=== PATIENT | female | born 1950 | race Caucasian/White ===

== ENCOUNTER 2025-01-03 03:43 | Inpatient (IN) | payer OTHER, SELFPAY ==
[2025-01-03] VITALS (25 sets, daily range): BP systolic 89–148; BP diastolic 47–104; PULSE 68–88; RESP 15–18; TEMP 36.1–37.3; O2SAT 74–100; BMI 29.3; BMI 26.6
--- NOTE | 2025-01-03 04:08 | EKG12_ITS ---
Test Reason : DYSRYTHMIA
[2025-01-03 04:17] LABS: Hematocrit 34.8 % (37-47); Hemoglobin 11.3 g/dL (12.0-15.0); Immature Granulocytes Count 0.080 X10^3/uL (0.0-0.0); Mean Corp Hgb Conc 32.5 g/dL (32-36); Mean Corpuscular Volume 87.4 fL (81-99); Mean Platelet Vol. 10.2 fl (6.2-12.0); NRBC Flagged by Analyzer 0 % (0-5); Platelet Count 260 K/mm3 (150-450); RBC Distribution Width CV 13.8 % (11.6-14.6); RBC Distribution Width SD 44.8 fl (35.1-43.9); Red Blood Count 3.98 M/mm3 (4.2-5.4); White Blood Count 11.8 K/mm3 (4.4-11.0)
--- NOTE | 2025-01-03 04:22 | PCM.HP.STD ---
HPI - General General Date of Admission: 01/03/25 Date of Service: 01/03/25 Chief Complaint: Fall, L hip pain. HPI Narrative The patient is a 78 y/o F w/ PMHx: Obesity, GERD w/ Hx gastric ulcer who presents to the [facility] ED on 01/03/25 with history of unfortunately mechanical fall while taking her dog out, tripping landing on her left hip with significant tenderness 10 severe sharp pain and debility with inability to bear weight prompting ED evaluation. In the ED upon evaluation she currently is rating her pain 9 out of 10 in severity and sharp in nature. She denies any paresthesias. Workup in the ED included T98, heart rate 88, BP 148/73, respiratory rate 16, 94% on room air, CBC with WC 11.8, Hgb 11.3, MCV 87.4, platelet 260 with left shift, unremarkable coags, BMP with BUN/creatinine 19/0.65, GFR 92, glucose 116, urinalysis unremarkable, plain film of the left hip and pelvis nondisplaced impacted fracture of the left femoral neck with moderate bilateral hip arthrosis, chest x-ray with no acute cardiopulmonary findings, plain film of the left knee/tib-fib region with no acute osseous finding, EKG pending upon evaluation patient. In the ED patient administered morphine 4 mg IV x 1 as well as Zofran 4 mg IV x 1. ED discussed case with orthopedic surgeon Dr. Cao. [facility] Medical History (Updated 01/03/25 @ 05:[address] Kailyn Rizvi MD) Chronic anemia CKD (chronic kidney disease), stage II Hx of gastric ulcer GERD (gastroesophageal reflux disease) Home Medications ?Medication ?Instructions ?Recorded ?Last Taken ?Type omeprazole 40 mg capsule,delayed 20 mg PO DAILY 01/03/25 Unknown History release Allergy/AdvReac Type Severity Reaction Status Date / Time carbamazepine (From Tegretol) Allergy Other Verified 01/03/25 03:45 Family History (Updated 01/03/25 @ 04:[address] Kailyn Rizvi MD) Mother Heart disease Father Prostate cancer Surgical History Hx of bilateral cataract extraction Hx of appendectomy History of bladder surgery Social History (Updated 01/03/25 @ 04:[address] Kailyn Rizvi MD) household members: none Smoking Status: Never smoker alcohol intake: never substance use type: does not use ROS ROS Narrative Admission Review of Systems: CONSTITUTIONAL: No weight loss, fever, chills, = weakness or fatigue. HEENT: Eyes: No visual loss, blurred vision, double vision or yellow sclerae. Ears, Nose, Throat: No hearing loss, sneezing, congestion, runny nose or sore throat. SKIN: No rash or itching, lesions, wounds. CARDIOVASCULAR: No chest pain, chest pressure or chest discomfort, palpitations, edema, orthopnea, syncopal events. RESPIRATORY: No shortness of breath, cough or sputum, wheezing, hemoptysis. GASTROINTESTINAL: No anorexia, nausea, vomiting or diarrhea, abdominal pain, melena, BRBPR. GENITOURINARY: No dysuria, frequency, urgency or retention. NEUROLOGICAL: No headache, dizziness, syncope, paralysis, ataxia, numbness or tingling in the extremities, focal weakness, change in bowel or bladder control, seizure. MUSCULOSKELETAL: + muscle, back pain, joint pain or stiffness. HEMATOLOGIC: + Appearance of chronic anemia, no marked easy bleeding or bruising. LYMPHATICS: No enlarged nodes. No history of splenectomy. PSYCHIATRIC: No history of depression or anxiety. ENDOCRINOLOGIC: No reports of sweating, cold or heat intolerance. No polyuria or polydipsia. ALLERGIES: No history of asthma, hives, eczema or rhinitis. Vital Signs Vital Signs Vital Signs: 01/03/25 03:45 01/03/25 03:48 Temperature 98.0 F Temperature Source Oral Pulse Rate 88 Respiratory Rate 16 Respiratory Effort Normal Non-Labored Respiratory Depth Normal Respiratory Pattern Normal Blood Pressure 148/73 H Blood Pressure Mean 98 Pulse Ox 94 95 Oxygen Delivery Method Room Air Room Air Weight Weight: 187 lb 6.287 oz Body Mass Index (BMI) 29.3 Physical Exam Narrative Physical Examination: General: Awake, alert, oriented x 3 and cooperative, laying in the bed, reports persistent left hip pain rating it 9 out of 10. Skin: Normal color, normal turgor, no icterus, no cyanosis except occasional stage ecchymoses, abrasion. HEENT: AT/NC, EOMI, PERRLA, mildly dry MM, no carotid bruits or JVD noted. Lungs: CTA bilaterally, moderate effort, mild decrease BL bases, no rales, ronchi or wheezing. Heart: Regular rate and rhythm; no gallop, rub audible. Abdomen: Soft, obese, NTTP, ND, normal BS, no markedly appreciated HSM. Extremities: No cyanosis, no clubbing, mild bilateral ankle not markedly pitting edema, peripheral pulses intact. Neurological: Patient awake, alert, oriented as noted, cognitive function intact; pupils equally reactive to light and accommodation, cranial nerves grossly normal, moving all 4 extremities except expected limitation given recent mechanical fall with severe left hip pain, no focal deficits, strength accordingly severely globally decreased Psychiatric: Affect appears fatigued otherwise normal, no acute evidence of depressive or anxiety feelings. Results Lab / Micro Data 01/03/25 04:12 01/03/25 04:12 Labs: Laboratory Results - last 24 hr 01/03/25 04:12: WBC 11.8 H, RBC 3.98 L, Hgb 11.3 L, Hct 34.8 L, MCV 87.4, MCH 28.4, MCHC 32.5, RDW Std Deviation 44.8 H, RDW Coeff of Dexter 13.8, Plt Count 260, MPV 10.2, Immature Gran % (Auto) 0.700, Neut % (Auto) 79.6 H, Lymph % (Auto) 14.9 L, [place] % (Auto) 3.7, Eos % (Auto) 0.8, Baso % (Auto) 0.3, Absolute Neuts (auto) 9.4 H, Absolute Lymphs (auto) 1.77, Nucleated RBC % 0 Assessment & Plan Assessment/Plan (1) Closed left hip fracture: PLAN: Plan The patient is a 78 y/o F w/ PMHx: Obesity, GERD w/ Hx gastric ulcer who presents to the [facility] ED on 01/03/25 with history of unfortunately mechanical fall while taking her dog out, tripping landing on her left hip with significant tenderness 10 severe sharp pain and debility with inability to bear weight prompting ED evaluation. #1. General debility, left hip pain s/p mechanical fall w/ left femoral neck nondisplaced impacted fracture: Orthopedic surgery consulted from ED. Will admit to MS, maintain NPO, continue gentle IVFs, hawthorne placement, monitor I/Os, frequent positioning, fall precautions, as needed pain, anti-emetic regimen. PT/OT following operative intervention. CM consulted for discharge planning. Per NSQIP patient low perioperative cardiac event risk with no marked underlying medical history. EKG will be obtained in the ED and if there is no acute concerning findings then would agree with progression to OR today. #2. Normocytic anemia, unclear chronicity: Admission hemoglobin 11.3, MCV 87.4, unfortunately no comparison labs thus uncertain hemoglobin baseline, will repeat CBC to further elucidate. #3. Chronic Kidney Disease Stage II per previous GFR trending although remote: Admission BUN/Cr 19/0.65, baseline renal function 0.8, repeat BMP in AM. #4. Obesity: Weight loss and lifestyle changes encouraged. #5. GERD with history of gastric ulcer: Will continue patient on PPI. #6. DVT prophylaxis: SCDs, defer chemoprophylaxis given planned intervention. #7. CODE status: Patient does not have healthcare power of criminal attorney or living will in place but she notes her brother who is present would be her medical decision-maker if necessary. Discussed CODE status at length including difference between FULL code, DNR-CCA and DNR-CC status. Following discussions about the differences in these status, requested DNR-CCA with allowance of short term intubation. Charges/Coding Visit Charges Inpatient E&M: 53502 Init Hosp L3
[2025-01-03 04:27] LABS: Prothrombin Time (Protime)PT. 13.6 SECONDS (11.7-14.9)
--- NOTE | 2025-01-03 04:27 | EX.ED.DYSGE1 ---
HPI History of Present Illness Chief Complaint: Fall Informant: patient, family and EMS Narrative Narrative: Patient is a 74-year-old female who reports a past medical history of GERD/gastric ulcer for which she takes omeprazole. Otherwise she denies any significant past medical history. She states that this morning around 230 or 3 AM she was up letting her dog out. She states she let the dog back in and then she was standing on her right foot pulling up the sock on her left leg. She states as she was balancing on 1 foot she lost her balance and fell landing on the left hip/leg. She reports instant pain along the left hip and states she could not stand and ambulate after the fall secondary to pain. She denies striking her head or any loss of consciousness. She denies any history of bleeding disorder or blood thinner use. She denies any other injury. She reports that her brother was also up and was able to contact EMS. With concern for potential fracture she was brought to the ER for evaluation. [facility] Medical History (Updated 01/03/25 @ 05:[address] Matt Garcia DO) Chronic anemia CKD (chronic kidney disease), stage II Hx of gastric ulcer GERD (gastroesophageal reflux disease) Home Medications ?Medication ?Instructions ?Recorded ?Last Taken ?Type omeprazole 40 mg capsule,delayed 20 mg PO DAILY 01/03/25 Unknown History release Allergy/AdvReac Type Severity Reaction Status Date / Time carbamazepine (From Tegretol) Allergy Other Verified 01/03/25 03:45 Family History (Updated 01/03/25 @ 04:[address] Kailyn Rizvi MD) Mother Heart disease Father Prostate cancer Surgical History Hx of bilateral cataract extraction Hx of appendectomy History of bladder surgery Social History (Updated 01/03/25 @ 04:[address] Kailyn Rizvi MD) household members: none Smoking Status: Never smoker alcohol intake: never substance use type: does not use ROS ROS ED Constitutional Constitutional ED: Denies chills or fever(s) Eyes Eyes: Denies blurry vision or change in vision ENT ENT ED: Denies sore throat Cardiovascular Cardiovascular: Reports other Details: Negative syncope ; Denies chest pain, palpitations or racing heartbeat Respiratory/Chest Respiratory/Chest: Denies cough or dyspnea Gastrointestinal Gastrointestinal: Denies abdominal pain, diarrhea, nausea or vomiting Genitourinary Genitourinary ED: Denies dysuria Musculoskeletal Musculoskeletal: Reports other Details: Positive left hip/thigh pain ; Denies back pain or neck pain Integumentary Denies Abrasions or rash Neurologic Neurologic: Denies headache(s), paresthesias or weakness Hematologic/Lymphatic Hematologic/Lymphatic: Denies easy bleeding or easy bruising EXAM Physical Exam Const Vital Signs: 01/03/25 03:45 01/03/25 03:48 01/03/25 04:20 Temperature 98.0 F Temperature Source Oral Pulse Rate 88 Respiratory Rate 16 Respiratory Effort Normal Non-Labored Respiratory Depth Normal Respiratory Pattern Normal Blood Pressure 148/73 H Blood Pressure Mean 98 Pulse Ox 94 95 80 Oxygen Delivery Method Room Air Room Air Room Air Oxygen Flow Rate (L/min) 01/03/25 04:30 01/03/25 05:00 Temperature Temperature Source Pulse Rate 75 Respiratory Rate 16 Respiratory Effort Respiratory Depth Respiratory Pattern Blood Pressure 100/62 Blood Pressure Mean 74 Pulse Ox 93 96 Oxygen Delivery Method Nasal Cannula Nasal Cannula Oxygen Flow Rate (L/min) 2 2 Positive well nourished and well developed General Appearance ED: well developed; Negative for pallor HEENT HEENT Narrative: Normocephalic atraumatic No signs of depressed or basilar skull fracture Eyes PERRL and EOMs intact bilaterally General Eye ED: Negative for scleral icterus Neck supple Neck Narrative: No bony deformity or step-off of the cervical spine no midline tenderness to palpation Chest Wall palpation of chest normal Chest Narrative: No bony deformity or subcutaneous emphysema noted Resp normal respiratory effort and clear to auscultation bilaterally Cardio regular rate and regular rhythm Rate: other Other Details: Radial and carotid pulses are equal and symmetric GI normal to inspection, nondistended, normoactive bowel sounds, non-tender, non-distended and no masses GI Narrative: No voluntary guarding or rigidity or pulsatile mass Auscultation: normoactive bowel sounds Palpation: soft Extremity Extremity Narrative: Pelvis is stable there is no obvious shortening or external rotation of either lower extremity Patient has pain palpation of the left hip near the greater trochanter region as well as the distal third of the femur and anterior aspect of the left knee. There is no obvious bony deformity or joint effusion. However there is significant pain with active or passive range of motion. All compartments are soft and compressible going against compartment syndrome There are no overlying abrasions or ecchymosis noted as well Remainder of the exam is normal Neuro oriented x3, CN's II-XII intact bilaterally and no sensory deficits noted Sensorium / Orientation: alert Psych mental status grossly normal Skin no rashes or lesions noted and no wounds General Skin Exam: Negative for jaundice or pallor MDM MDM MDM Narrative Medical decision making narrative: Patient arrived to the ER with stable vitals. She reported a mechanical fall and therefore I felt no need for cardiac or syncope workup. She did not strike her head she did not have loss of consciousness she does not have history of bleeding disorder nor is she on blood thinners so I low concern for atraumatic skull fracture or traumatic subarachnoid subdural hemorrhage and there is no need for head CT. With the patient reporting sudden onset of pain following the fall and the inability to ambulate there is high likelihood for femoral neck or pubic rami fracture. Therefore x-rays of the left hip and pelvis were obtained. As she also had pain along the distal femur/knee there is concern for distal femur fracture versus patellar fracture or tibial plateau fracture so an x-ray of the knee was added. The left hip x-ray revealed a impacted femoral neck fracture which correlates with her history of fall sudden onset pain and the fact that her leg is not shortened or rotated. She does not have findings of compartment syndrome and she is closed and neurovascularly intact. As she will require surgical fixation for her to walk the case was reviewed with orthopedic surgeon Dr. Cao. He reviewed the films and agrees with the radiologist and states he should be able to perform a surgical fix to the patient's left hip later today. Therefore the patient will be made n.p.o.. Based on her advanced age the hospitalist was then contacted in order to admit the patient and perform medical clearance. The hospitalist evaluated the patient in the ER and agrees to accept her to her service for continued care and medical clearance. History & Record Review Discussion w/independent historian: EMS personnel, Patient and Family Lab Data Attestation: I reviewed the patient's lab results. Labs: Laboratory Results - last 24 hr 01/03/25 01/03/25 04:12 04:34 WBC 11.8 H RBC 3.98 L Hgb 11.3 L Hct 34.8 L MCV 87.4 MCH 28.4 MCHC 32.5 RDW Std Deviation 44.8 H RDW Coeff of Dexter 13.8 Plt Count 260 MPV 10.2 Immature Gran % (Auto) 0.700 Neut % (Auto) 79.6 H Lymph % (Auto) 14.9 L [place] % (Auto) 3.7 Eos % (Auto) 0.8 Baso % (Auto) 0.3 Absolute Neuts (auto) 9.4 H Absolute Lymphs (auto) 1.77 Nucleated RBC % 0 PT 13.6 INR 1.0 APTT 30.2 Sodium 139 Potassium 4.0 Chloride 103 Carbon Dioxide 25.4 Anion Gap 11 BUN 19 Creatinine 0.65 L Estim Creat Clear Calc 68.06 Est GFR (MDRD) Non-Af 92 BUN/Creatinine Ratio 29.5 H Glucose 116 H Calcium 8.9 Urine Color Yellow Urine Clarity Sl. Cloudy Urine pH 7.0 Ur Specific [place] 1.010 Urine Protein Negative Urine Glucose (UA) Normal Urine Ketones Negative Urine Occult Blood 25 H Urine Nitrite Negative Urine Bilirubin Negative Urine Urobilinogen Normal Ur Leukocyte Esterase Negative Urine RBC 0 SEEN Urine WBC 0-5 SEEN Ur Squamous Epith Cells 0 SEEN Urine Bacteria 0 SEEN Urine Mucus 0 SEEN Radiography Diagnostic Testing: Clinical Impression(s) from Imaging Studies Chest X-Ray 01/03/25 04:50 IMPRESSION: No acute pulmonary disease. Reading Location: [facility] Hip/Pelvis X-Ray 01/03/25 04:50 IMPRESSION: Nondisplaced impacted fracture of the left femoral neck. Moderate bilateral hip arthrosis. Reading Location: [facility] Knee X-Ray 01/03/25 04:50 IMPRESSION: No acute fracture or dislocation. 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 Reading Location: [facility] 1 view chest x-ray as interpreted by the emergency medicine physician reveals no acute infiltrate or pneumothorax or rib fracture Knee x-ray as interpreted by the emergency medicine physician reveals no acute fracture dislocation or joint effusion Left hip x-ray with 1 view pelvis as interpreted by the emergency medicine physician reveals an impacted fracture of the left femoral neck. Management Discussion w/another healthcare provider: Hospitalist and Instruments Sales Representative Discharge Plan Dx/Rx/DC Orders Clinical Impression: Closed left hip fracture, Accidental fall, GERD (gastroesophageal reflux disease) Disposition Disposition: Acute Care Hospital [facility]
[2025-01-03 04:28] LABS: Partial Thromboplast Time 30.2 Seconds (24.1-36.2)
[2025-01-03 04:33] LABS: Anion Gap 11 (5-15); BUN 19 mg/dL (4-19); BUN/Creat Ratio 29.5 RATIO (10-20); Calcium,Total 8.9 mg/dL (7.6-11.0); Carbon Dioxide 25.4 mmol/L (21.0-32.0); Chloride 103 mmol/L (98-108); Estimated Creatinine Clearance 68.06 ml/min (50-250); Glucose 116 mg/dL (70-99); Potassium 4.0 mmol/L (3.3-5.1)
[2025-01-03 04:39] LABS: Color, Urine Yellow (Yellow); Glucose, Dipstick Normal (Normal); Ketone-Dipstick Negative (Negative); Leukocyte Esterase-Dipstick Negative /ul (Negative); Nitrite-Dipstick Negative (Negative); Occult Blood-Urine 25 /ul (Negative); Protein-Dipstick Negative (Negative); Specific Gravity, Urine 1.010 (1.002-1.030); Urine Bilirubin Dipstick Negative (Negative)
[2025-01-03 04:40] LABS: Mucous, Urine 0 SEEN /hpf (<or=2+); Red Blood Cells-Urine 0 SEEN /hpf (0-5); Squamous Epithelial Cells - UA 0 SEEN /hpf (5-10)
--- NOTE | 2025-01-03 04:50 | RAD_ITS ---
PROCEDURE: RAD/Knee 1 or 2 Views
--- NOTE | 2025-01-03 04:50 | RAD_ITS ---
PROCEDURE: RAD/HIP, UNI W/ Pelvis 2-3 Views
--- NOTE | 2025-01-03 04:50 | RAD_ITS ---
PROCEDURE: RAD/Chest 1 View (Portable)
[2025-01-03] MEDS: HYDROmorphone 0.5 MG/0.5 ML SYRINGE IV (05:19)
[2025-01-03] MEDS: 0.9% Saline Lock 10 ML Syringe IV ×2 (06:52→18:44)
[2025-01-03] MEDS: 0.9% Normal Saline (1000mL) 1,000 ML 100 ML IV (06:52)
--- NOTE | 2025-01-03 09:59 | PCM.PRE.AN2 ---
ASA Classification* ASA Classification ASA Classification: 2 and E Assessment & Plan Anesthesia* Anesthesia Assessment Anesthesia Assessment: Discussed sedation and/or anesthesia options, risks, benefits, and alternatives with patient/parents/legal guardian/POA. Questions invited. The patient/parents/legal guardian/POA seems to understand and agrees to proceed with anesthesia plan. Reviewed the physical assessment, medical history, allergy history and patient home medications list prior to surgery/procedure/anesthetic and documented any changes. Performed airway and anesthesia risk assessments. Anesthesia Type Anesthesia Type: Spinal (verses GA based on surgeon preference) Anesthesia Focused Assessment* Temperature: 97.7 F Pulse Rate: 79 Blood Pressure: 106/62 Respiratory Rate: 17 Pulse Ox: 100 Oxygen Flow Rate (L/min): 2 Airway Assessment Mouth opens: >3 cm Mallampati Score: II Labs Anesthesia Preop lab: CBC WBC, (4.4-11.0) 11.8 K/mm3 H Today, 04:12 RBC, (4.2-5.4) 3.98 M/mm3 L Today, 04:12 Hgb, (12.0-15.0) 11.3 g/dL L Today, 04:12 Hct, (37-47) 34.8 % L Today, 04:12 Plt Count, (150-450) 260 K/mm3 Today, 04:12 CHEMISTRY Potassium, (3.3-5.1) 4.0 mmol/L Today, 04:12 Sodium, (133-145) 139 mmol/L Today, 04:12 BUN, (4-19) 19 mg/dL Today, 04:12 Creatinine, (0.70-1.20) 0.65 mg/dL L Today, 04:12 Glucose, (70-99) 116 mg/dL H Today, 04:12 COAG PT, (11.7-14.9) 13.6 SECONDS Today, 04:12 Pre-Assessment Diagnosis/Proposed Procedure Planned Operative Procedure(s): Hemiarthroplasy hip Anesthesia History Anesthesia History - furnace combustion tester: Anesthesia History - furnace combustion tester Hx Hospitalization Yes 04/21/14 09:05 Any Problems With Anesthesia No 01/03/25 06:09 Cholinesterase deficiency No 01/03/25 06:09 You/Your Family Experience No 01/03/25 06:09 fever (hyperthermia) with Relationship Recent Exposure to Contagious No 01/03/25 06:09 Disease Does patient have nerve No 01/03/25 06:09 stimulator Patient instructed to have No 01/03/25 06:09 device shut off --Does patient have Pacemaker or ICD? When Was Last Pacemaker Check QUESTION #4 FULL TEXT: You/Your Family Experience fever (hyperthermia) with Anesthesia Last Oral Intake Last Oral intake: Last Oral Intake NPO since Meds taken in AM with sips of water? Meds patient instructed to take am of surgery PONV PONV - furnace combustion tester: PONV - furnace combustion tester Female HX of Motion Sickness HX of N/V After Surgery Non-Smoker Duration of Surgery greater than 60 minutes Number of Risk Factors PONV Score Height & Weight Height & Weight: Anesthesia: Height & Weight Height 5 ft 7 in 01/03/25 06:08 Weight: 77 kg 01/03/25 06:08 Body Mass Index (BMI) 26.6 01/03/25 06:08 Respiratory Assessment Respiratory Assessment - furnace combustion tester: Respiratory Tract Infection Hx - furnace combustion tester Hx Respiratory Tract Infection No 01/03/25 06:09 STOP Sleep Apnea STOP Sleep Apnea - furnace combustion tester: STOP Sleep Apnea - furnace combustion tester Hx Hypertension Yes 01/03/25 07:34 Hx Sleep Apnea No 01/03/25 06:08 CPAP No 04/28/14 09:28 BIPAP No 04/21/14 09:05 Do you snore loudly (louder No 01/03/25 06:08 than talking or can be heard Do you often feel tired/ No 01/03/25 06:08 fatigued/ sleepy during daytime? Has anyone observed you stop No 01/03/25 06:08 breathing during sleep? STOP Results Negative 01/03/25 06:08 QUESTION #5 FULL TEXT : Do you snore loudly (louder than talking or can be heard through closed doors)? Tobacco Use History Tobacco Use History - furnace combustion tester: Tobacco Use History - furnace combustion tester Tobacco Use Smoking Status Never smoker 01/03/25 06:08 Hx Tobacco Use No 01/03/25 06:08 Years Smoking Packs Smoked per Day Smoking Cessation Date was within the last 15 years Hx Smoking Cessation Date Hx Smoking Cessation Counseling Hematologic Medial History Hematologic Hx - furnace combustion tester: Hematologic Medical Hx - certified legal secretary specialist Hx of Blood Transfusion No 01/03/25 06:08 Hx of Transfusion in last 3 No 01/03/25 06:08 Months Date of Last Transfusion (if within last 3 months) Ever experience any problems No 01/03/25 06:08 with transfusion(s)? Specify any problems Hx of Preganancy in last 3 N/A 01/03/25 06:08 Months Nurse Filling Out Transfusion ALOWDEN 01/03/25 06:08 & Questions: Date: 01/03/25 01/03/25 06:08 Time: 06:35 01/03/25 06:08 Patient unable to answer at this time (ie. confused, unrespo /Reproduction History /Reproductive History - furnace combustion tester: /Reproductive Hx- furnace combustion tester Hx Now No 01/03/25 06:09 Gestational Age (in weeks): EDC: Hx Hx Para Hx Section SAB No 01/03/25 06:09 Active Medications Active Medications: Current Medications Generic Name Dose Route Start Last Admin Trade Name Freq PRN Reason Stop Dose Admin Acetaminophen 650 mg 01/03/25 06:23 Acetaminophen 325 Mg Tablet PO Q4H PRN PRN Fever, pain 1-12/11 Al Hydroxide/Mg Hydroxide 30 ml 01/03/25 06:23 Mag Hydrox/Al Hydrox/Simeth 30 Ml Udc PO Q6H PRN PRN Gastric Burning Albuterol Sulfate 2.5 mg 01/03/25 06:23 Albuterol 2.5 Mg/3 Ml Vial.Neb. INHALATION Q2H PRN PRN Dyspnea, wheezing Guaifenesin 20 ml 01/03/25 06:23 Guaifenesin 10 Ml Udc (200mg/10ml) PO Q4H PRN PRN COUGH Hydralazine HCl 10 mg 01/03/25 06:23 Hydralazine 20 Mg/Ml Vial IV Q4H PRN PRN SBP > 160 Protocol Sodium Chloride 250 mls @ 15 mls/hr 01/03/25 06:09 IV .[id number] PRN Saline Flush Sodium Chloride 250 mls @ 15 mls/hr 01/03/25 06:09 IV .[id number] PRN Additional IVPB Infusion Sodium Chloride 1,000 mls @ 100 mls/hr 01/03/25 06:23 01/03/25 06:52 IV 01/03/25 16:22 100 mls/hr .Q10H IRMA Administration Melatonin 3 mg 01/03/25 06:23 Melatonin 3 Mg Tablet PO QHS PRN PRN INSOMNIA Morphine Sulfate 2 - 4 mg 01/03/25 06:23 01/03/25 08:19 Morphine 4 Mg/Ml Syringe IV 4 mg Q2H PRN PRN Administration Pain Score 4-10 Ondansetron HCl 4 mg 01/03/25 06:23 Ondansetron 4 Mg/2 Ml Vial IV Q8H PRN PRN NAUSEA/VOMITING Oxycodone HCl 2.5 - 5 mg 01/03/25 06:23 Oxycodone 5 Mg Tablet PO Q4H PRN PRN Pain Score 4-10 Pantoprazole Sodium 20 mg 01/03/25 10:00 Pantoprazole Sodium 20 Mg Tablet PO DAILY IRMA Senna/Docusate Sodium 2 tablet 01/03/25 10:00 Senna/Docusate Sodium 1 Tablet PO BID IRMA Sodium Chloride 10 - 40 ml 01/03/25 06:09 01/03/25 06:52 0.9% Saline Lock 10 Ml Syringe IV 10 ml UD PRN Administration SALINE FLUSH PFSH Medical History (Updated 01/03/25 @ 05:[address] Matt Garcia, DO) Chronic anemia CKD (chronic kidney disease), stage II Hx of gastric ulcer GERD (gastroesophageal reflux disease) Home Medications ?Medication ?Instructions ?Recorded ?Last Taken ?Type omeprazole 40 mg capsule,delayed 20 mg PO DAILY 01/03/25 Unknown History release Allergy/AdvReac Type Severity Reaction Status Date / Time carbamazepine (From Tegretol) Allergy Other Verified 01/03/25 03:45 Family History (Updated 01/03/25 @ 04:[address] Kailyn Rizvi MD) Mother Heart disease Father Prostate cancer Surgical History Hx of bilateral cataract extraction Hx of appendectomy History of bladder surgery Social History (Updated 01/03/25 @ 04:[address] Kailyn Rizvi MD) household members: none Smoking Status: Never smoker alcohol intake: never substance use type: does not use Review of Systems (Anesthesia) ROS Narrative System reviewed and no additional complaints, except as documented.
--- NOTE | 2025-01-03 11:09 | PCM.CONS.GEN ---
Assessment & Plan Assessment/Plan (1) Fracture of femoral neck: QUALIFIERS: Encounter type: initial encounter Fracture type: closed Laterality: left Qualified Code(s): S72.002A - Fracture of unspecified part of neck of left femur, initial encounter for closed fracture PLAN: Plan Impacted displaced left femoral neck fracture Plan for hemiarthroplasty left hip Benefits alternatives of surgery reviewed including risk of bleed infection nerve artery tissue damage need for further surgery continued pain leg with discrepancy dislocation intraoperative fracture. Consent signed placed in the chart Antibiotics on-call to the OR TXA as well. HPI Consult Data Date of Consult: 01/03/25 HPI Narrative HPI Narrative: SHERON OSBORN, is a 74 F who presents after ground-level fall onto her left side immediately had pain inability ambulate she was brought to the emergency room where x-rays taken which demonstrated a displaced femoral neck fracture impacted. Denies any other injury or concern [facility] Medical History (Updated 01/03/25 @ 11:[address] Joseph Cao DO) Chronic anemia CKD (chronic kidney disease), stage II Hx of gastric ulcer GERD (gastroesophageal reflux disease) Home Medications ?Medication ?Instructions ?Recorded ?Last Taken ?Type omeprazole 40 mg capsule,delayed 20 mg PO DAILY 01/03/25 Unknown History release Allergy/AdvReac Type Severity Reaction Status Date / Time carbamazepine (From Tegretol) Allergy Other Verified 01/03/25 03:45 Family History (Updated 01/03/25 @ 04:[address] Kailyn Rizvi MD) Mother Heart disease Father Prostate cancer Surgical History Hx of bilateral cataract extraction Hx of appendectomy History of bladder surgery Social History (Updated 01/03/25 @ 04:[address] Kailyn Rizvi MD) household members: none Smoking Status: Never smoker alcohol intake: never substance use type: does not use Physical Exam Const alert, oriented x3 and no apparent distress General Appearance: cooperative and comfortable Extremity Extremity Narrative: Left hip no open wounds compartments soft she is able to wiggle her toes palpable pedal pulse intact and station light touch throughout the extremity Lab / Micro Data 01/03/25 04:12 01/03/25 04:12 Labs: Laboratory Results - last 24 hr 01/03/25 04:12: WBC 11.8 H, RBC 3.98 L, Hgb 11.3 L, Hct 34.8 L, MCV 87.4, MCH 28.4, MCHC 32.5, RDW Std Deviation 44.8 H, RDW Coeff of Dexter 13.8, Plt Count 260, MPV 10.2, Immature Gran % (Auto) 0.700, Neut % (Auto) 79.6 H, Lymph % (Auto) 14.9 L, [place] % (Auto) 3.7, Eos % (Auto) 0.8, Baso % (Auto) 0.3, Absolute Neuts (auto) 9.4 H, Absolute Lymphs (auto) 1.77, Nucleated RBC % 0, PT 13.6, INR 1.0, APTT 30.2, Sodium 139, Potassium 4.0, Chloride 103, Carbon Dioxide 25.4, Anion Gap 11, BUN 19, Creatinine 0.65 L, Estim Creat Clear Calc 68.06, Est GFR (MDRD) Non-Af 92, BUN/Creatinine Ratio 29.5 H, Glucose 116 H, Calcium 8.9 01/03/25 04:34: Urine Color Yellow, Urine Clarity Sl. Cloudy, Urine pH 7.0, Ur Specific [place] 1.010, Urine Protein Negative, Urine Glucose (UA) Normal, Urine Ketones Negative, Urine Occult Blood 25 H, Urine Nitrite Negative, Urine Bilirubin Negative, Urine Urobilinogen Normal, Ur Leukocyte Esterase Negative, Urine RBC 0 SEEN, Urine WBC 0-5 SEEN, Ur Squamous Epith Cells 0 SEEN, Urine Bacteria 0 SEEN, Urine Mucus 0 SEEN Imaging Radiology Impression Chest X-Ray 01/03/25 04:50 IMPRESSION: No acute pulmonary disease. Reading Location: [facility] Hip/Pelvis X-Ray 01/03/25 04:50 IMPRESSION: Nondisplaced impacted fracture of the left femoral neck. Moderate bilateral hip arthrosis. Reading Location: [facility] Knee X-Ray 01/03/25 04:50 IMPRESSION: No acute fracture or dislocation. 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 Reading Location: [facility]
[2025-01-03] MEDS: Midazolam 2 MG/2 ML Syringe IV (11:11)
[2025-01-03] MEDS: fentaNYL 100 MCG/2 ML Ampul IV (11:17)
--- NOTE | 2025-01-03 11:20 | FEM_PTH ---
PATIENT: SHERON OSBORN LOC: PCU U#:[id number] AGE/SX: 74/F ROOM: [facility] RE01/03/[address]: Dr. Lolly Lin MD : 1950 BED: 1 DIS: 01/06/2025 SPEC #: [id number] RECD: 01/04/25 07:17 STATUS: BENJAMIN UNIQUE #: [id number] KEV: 01/03/25 11:[address]: Joseph Cao DEPT: SURGICAL PATHOLOGY RECD BY: Sushil Castle ENTERED: 01/04/25 09:16 SP TYPE: FEM HEAD OTHR DR: MD Dr. Lolly Wilson MD JARED HOSTETLER, HORSERADISH GRINDER-C Tissues: A - Femoral region, NOS Procedures: Decalcification bone/plaque Surgery Specimen Level V HEADER OPERATION: Hemiarthroplasty, hip PRE-OP DIAGNOSIS: Fracture of left femoral neck TISSUE SUBMITTED: A- Left hip, bone and tissue MICROSCOPIC DIAGNOSIS A. Left hip, hemiarthroplasty: MICROSCOPIC DESCRIPTION Slides are reviewed. GROSS DESCRIPTION A. Received in formalin labeled with the patient's name and date of . Designated as bone and soft tissue-left hip is a 5.1 x 4.9 x 4.3 cm somewhat irregular, ovoid femoral head with detached, femoral neck in multiple pieces, 4.8 x 3.8 x 2.4 cm in aggregate. The resection margin of the femoral head is jagged and congested. The articular cartilage is mcintosh-red and granular with focal, possible eburnation and mild-moderate peripheral osteophyte formation. Sectioning reveals yellow-red, focally soft and hemorrhagic, trabeculated medullary bone throughout. Delivery Engineer sections are submitted in 2 cassettes, following decalcification as follows: A1: Femoral head with possible eburnation and focal hemorrhageA2: Femoral neck SC 01/04/2025 CPT:52328,02442
[2025-01-03] MEDS: Cefazolin 1 GM/5 ML Vial 2 GM IV (11:28)
[2025-01-03] MEDS: LACTATED RINGERS IV (11:29)
[2025-01-03] MEDS: TRANEXAMIC ACID 1,000 MG/10 ML ML 1000 MG IV (11:30)
[2025-01-03] MEDS: PROPOFOL 32.21 MG IV (12:27)
--- NOTE | 2025-01-03 13:10 | OP.PCM_ITS ---
Operative Report (Standard)
--- NOTE | 2025-01-03 13:10 | PCM.OPRPT ---
Operative Report (Standard) Operative Information Date of Procedure: 01/03/25 Pre-Operative Diagnosis: Left femoral neck fracture Post-Operative Diagnosis: Same Surgery/Procedure Performed: Left hip hemiarthroplasty traffic engineer: Yes Industrial Maintenance Repairer Helper: Nisreen Hagan Tasks completed by director of first impressions: Opening & closing Type of Anesthesia: Spinal RN Documented Start/Stop Times: Operation Date: 01/03/25 11:20 <No data on this case meets the specified criteria> Procedure Start Time: 11:20 Procedure Stop Time: 13:00 Select all DRAINS/GRAFTS/IMPLANTS that apply: Prosthetic device Prosthetic device details: [place] Estimated Blood Loss: 125 Specimen collected: Yes Description of specimen(s) removed: Femoral head Description of surgery: Preoperative diagnosis: Left hip femoral neck fracture displaced Postoperative diagnosis: Same Procedure: Left hip hemiarthroplasty Implants: Ramón Accolade II stem size 6 132 degree neck angle 0 neck length 53 mm outer diameter bipolar head Anesthesia: General l EBL: 150 cc Complications: None Condition: Stable to PACU Indication for procedure: This is a 74-year-old female patient with a ground-level fall sustaining a impacted displaced left femoral neck fracture. plans for definitive hemiarthroplasty were discussed including risks benefits and alternatives of the procedure were reviewed with the patient including risk of bleeding infection nerve artery tissue damage need for further surgery continue pain postoperative hip precaution restrictions leg length discrepancy and dislocation. Procedure: Patient was met in the preoperative holding area once again the operative extremity was identified by both patient and physician and was marked. Patient was met by anesthesia and brought to the operating room where anesthesia was started . The patient was then positioned in the lateral decubitus position on a well-padded pegboard with an axillary roll. All bony prominences were checked and padded. The patient was prepped and draped in the usual sterile fashion. A timeout was called to ensure the proper patient procedure and extremity were being contemplated. Anatomic landmarks were palpated and marked for a standard posterior lateral approach. A timeout was called to ensure the proper patient procedure and extremity were being contemplated. A 10 blade scalpel was used to make a posterior incision through the skin and subcutaneous tissue. In retractors were used and electrocautery was used to maintain meticulous hemostasis and dissect full-thickness flaps until the gluteal fascia was reached. The gluteal fascia was incised in line with the gluteal fibers. The bursal tissue was then freed from the underside and a Charnley retractor was placed. The fatpad was elevated off of the external rotators with electrocautery and the external rotators were dissected off of the greater trochanter including the piriformis and were tagged with #1 Ethibond for later repair. The joint capsule opened with posterior trapdoor technique. A femoral neck cutting guide was used to krish the neck with a Bovie and an oscillating saw was used to complete the femoral neck cut. the fracture was visualized and with the use of a corkscrew and a skid the femoral head was removed and sized. We then trialed with the matching sizes . Hohmann was placed around the lesser trochanter. A femoral elevator was used. As well as a pointed wide Hohmann around the lesser trochanter and a Hohmann to help retract the gluteus medius. A box chisel was used to remove excess lateral neck followed by a canal finder and a lateralizing reamer. This was followed by sequential broaches. Attention was made of the version within the canal. Once the final broach was seated we then trialed and reduced the hip it was determined that a 132 degree neck angle with a 0 neck length was the appropriate size. We then checked stability with shuck testing as well as flexion and interminal rotation then proceeded with hip extension and checked leg lengths at the knees and heels. At this point trials were removed. The femoral stem was inserted. We re-trialed and then proceeded to impact the femoral head onto the Shaw taper. We then surgically reduce the hip check stability again and leg lengths and were satisfied. irricept rinse was allowed to sit for 1 minutes while everyone changed their gloves. Thorough irrigation was performed. Followed by closure of the external rotators with #2 FiberWire followed by closure of gluteal fascia with #1 Ethibond. 0 Vicryl fat stitches and 2-0 Vicryl subcutaneous stitches and daniel in the skin. Dressing was applied in the form of silverlon dressing and an abduction pillow was placed. Patient tolerated the procedure well there was no intraoperative complications all counts were correct and the patient was brought back to the PACU in stable condition Surgical Findings: As above Complications Complications: No
--- NOTE | 2025-01-03 13:18 | POSTOP.ANE_ITS ---
Anesthesia: Postop Eval I
--- NOTE | 2025-01-03 13:18 | PCM.POST.ANE ---
Anesthesia: Postop Eval I Current Vital Signs Temperature: 97.3 F Pulse Rate: 84 Blood Pressure: 122/65 Respiratory Rate: 16 Pulse Ox: 94 Oxygen Delivery Method: Nasal Cannula Oxygen Flow Rate (L/min): 2 Assessment Airway patent: Yes Spontaneous unlabored respirations: Yes Mental status: Awake nausea: No Vomiting: No Anesthesia Complication: No Fluid Hydration Crystalloid volume administer (ml): 1,200 Total IV fluid infused: 1,200 Progress Note Anesthesia document: Postop Eval 1 completed: Yes
--- NOTE | 2025-01-03 13:20 | POSTOPAN2_ITS ---
Anesthesia Postop Eval I Sum
--- NOTE | 2025-01-03 13:20 | PCM.POSTANE2 ---
Anesthesia Postop Eval I Sum Postop Eval Completion status Anesthesia document: Postop Eval 1 completed: Yes Anesthesia Postop Eval I Summary Anesthesia Postop Eval I Summary: Anesthesia Postop Eval I: Assessment Summary Airway patent Yes 01/03/25 13:19 Spontaneous unlabored Yes 01/03/25 13:19 respirations Mental status Awake 01/03/25 13:19 nausea No 01/03/25 13:19 Vomiting No 01/03/25 13:19 Anesthesia Postop Eval I: Fluid Summary Crystalloid volume administer 1,200 01/03/25 13:19 (ml) Colloids volume administered ( ml) Blood Product volume administered (ml) Total IV fluid infused 1,200 01/03/25 13:19 Anesthesia Postop Eval I: Summary Notes Anesthesia Complication No 01/03/25 13:19 Anesthesia Complication Comment: Post-operative progress note Anesthesia: Postop Eval II Evaluation Mental status: Awake Pain Level: 1 nausea: No Vomiting: No
--- NOTE | 2025-01-03 13:25 | RAD_ITS ---
PROCEDURE: RAD/Hip Min 2 Views (Portable)
[2025-01-03] MEDS: Lactated Ringers 1,000 ML 125 ML IV (15:45)
--- NOTE | 2025-01-03 16:59 | PCM.HOSP.N ---
Hospitalist Note Admitted today 01/03/2025, seen in consultation by Ortho and taken to the OR. Patient underwent left hip hemiarthroplasty with Dr. Cao.
[2025-01-03] MEDS: Cefazolin 2 GM in 0.9% Normal Saline (100mL Bag) 100 ML IV (17:35)
[2025-01-03] MEDS: APIXABAN 2.5 MG TABLET (WCH) PO (20:52)
[2025-01-04] MEDS: Cefazolin 2 GM in 0.9% Normal Saline (100mL Bag) 100 ML IV ×2 (01:05→09:00)
[2025-01-04 03:21] VITALS: BMI 26.6
[2025-01-04 04:02] VITALS: BP 119/85; PULSE 95; RESP 15; TEMP 37.2
[2025-01-04 08:00] VITALS: O2SAT 95
[2025-01-04 08:07] LABS: Hematocrit 30.0 % (37-47); Hemoglobin 9.8 g/dL (12.0-15.0); Immature Granulocytes Count 0.050 X10^3/uL (0.0-0.0); Mean Corp Hgb Conc 32.7 g/dL (32-36); Mean Corpuscular Volume 89.3 fL (81-99); Mean Platelet Vol. 10.4 fl (6.2-12.0); NRBC Flagged by Analyzer 0 % (0-5); Platelet Count 199 K/mm3 (150-450); RBC Distribution Width CV 14.1 % (11.6-14.6); RBC Distribution Width SD 45.7 fl (35.1-43.9); Red Blood Count 3.36 M/mm3 (4.2-5.4); White Blood Count 11.6 K/mm3 (4.4-11.0)
[2025-01-04 08:37] LABS: AST(SGOT) 51 U/L (<=31); Alanine Aminotransfer ALT/SGPT 15 U/L (<=34); Albumin, Serum 3.3 g/dL (3.4-4.8); Alkaline Phosphatase 61 U/L (35-104); Anion Gap 9 (5-15); BUN 17 mg/dL (4-19); BUN/Creat Ratio 27.1 RATIO (10-20); Calcium,Total 8.0 mg/dL (7.6-11.0); Carbon Dioxide 22.1 mmol/L (21.0-32.0); Chloride 101 mmol/L (98-108); Estimated Creatinine Clearance 65.00 ml/min (50-250); Globulin 2.5 g/dL (2.2-4.2); Glucose 103 mg/dL (70-99); Potassium 4.2 mmol/L (3.3-5.1)
[2025-01-04 08:56] VITALS: BP 124/59; PULSE 88; RESP 16; TEMP 37.2; O2SAT 94
[2025-01-04] MEDS: Cholecalciferol (VIT D3) 25 MCG TABLET (1,000 UNITS) PO (09:00)
[2025-01-04] MEDS: APIXABAN 2.5 MG TABLET (WCH) PO ×2 (09:00→20:17)
--- NOTE | 2025-01-04 09:58 | PCM.PN.ORT ---
Subjective Subjective Venus is a pleasant 74-year-old female s/p L femoral neck fracture with hemiarthroplasty per Dr. Cao. DOI and DOS 01/03/2025. Patient had a ground-level fall during the night while letting her dog out, resulting in the hip fracture. Patient is resting in bed, tolerated breakfast well, PT and OT in to work with patient. Patient states she had increased pain this morning with attempting to move. Last pain medication was greater than 8 hours ago. P.o. oxycodone is helping at this time. Objective Data Objective Data Vital Signs: Vital Signs Temp Pulse Resp BP Pulse Ox O2 Del Method O2 Flow Rate 99.0 F 88 16 124/59 H 94 Nasal Cannula 3 01/04/25 08:56 01/04/25 08:56 01/04/25 08:56 01/04/25 08:56 01/04/25 08:56 01/04/25 08:56 01/04/25 08:56 Oxygen Flow Rate (L/min) 3 Oxygen Delivery Method Nasal Cannula Weight: 169 lb 12.095 oz Body Mass Index (BMI) 26.6 Intake & Output: Intake and Output for Last 24 Hours 01/02/25 01/03/25 01/04/25 23:59 22:59 23:59 Intake Total 2614.58 / 3114.58 610 / 610 Output Total 490 / 840 350 / 350 Balance 2124.58 / 2274.58 260 / 260 Lab / Micro Data Attestation: I reviewed the patient's lab results. 01/04/25 07:48 01/04/25 07:48 Labs: Laboratory Results - last 24 hr 01/04/25 07:48: WBC 11.6 H, RBC 3.36 L, Hgb 9.8 L, Hct 30.0 L, MCV 89.3, MCH 29.2, MCHC 32.7, RDW Std Deviation 45.7 H, RDW Coeff of Dexter 14.1, Plt Count 199, MPV 10.4, Immature Gran % (Auto) 0.400, Neut % (Auto) 83.3 H, Lymph % (Auto) 9.5 L, [place] % (Auto) 4.6, Eos % (Auto) 1.9, Baso % (Auto) 0.3, Absolute Neuts (auto) 9.7 H, Absolute Lymphs (auto) 1.10, Nucleated RBC % 0, Sodium 132 L, Potassium 4.2, Chloride 101, Carbon Dioxide 22.1, Anion Gap 9, BUN 17, Creatinine 0.63 L, Estim Creat Clear Calc 65.00, Est GFR (MDRD) Non-Af 93, BUN/Creatinine Ratio 27.1 H, Glucose 103 H, Calcium 8.0, Total Bilirubin 0.63, AST 51 H, ALT 15, Alkaline Phosphatase 61, Total Protein 5.7 L, Albumin 3.3 L, Globulin 2.5, Albumin/Globulin Ratio 1.3 Radiography Diagnostic Testing: Radiology Impression Hip X-Ray 01/03/25 13:25 IMPRESSION: As above. Reading Location: [facility] Physical Exam Const alert, oriented x3, no apparent distress and well nourished General Appearance: cooperative Left Hip Date of injury: 01/03/25 Date of Surgery: 01/03/25 Skin/Wound: Yes CDI Contralateral Normal: Yes HIP: Left hip wound dressing is dry and intact with no drainage noted Thigh is minimally swollen compared to opposite, no ecchymosis noted Calves are soft, nontender, negative Homans. SCDs and WICHO hose in place Patient is moving easily in bed. Assessment & Plan Assessment/Plan (1) Status post hemiarthroplasty of left hip: PLAN: PT/OT to eval and treat. Weightbearing as tolerated with walker. Discussed using pain meds moderate pain intensity level for better control Begin DC planning, rehab versus at home with home therapy Patient aware to follow-up with Ortho in 2 weeks for eval and staple removal Reviewed signs and symptoms of infection including redness, streaking, drainage, increased pain or other concerns to seek evaluation This document has been transcribed using Empressr dictation software. There may be incorrect words, spelling, and punctuation. (2) Fracture of femoral neck: QUALIFIERS: Encounter type: initial encounter Fracture type: closed Laterality: left Qualified Code(s): S72.002A - Fracture of unspecified part of neck of left femur, initial encounter for closed fracture
[2025-01-04 10:00] VITALS: O2SAT 90
--- NOTE | 2025-01-04 10:50 | CASEMGMT ---
CHIDI HARTLEY Face to Face with patient for initial transition planning/care coordination assessment. CHIDI HARTLEY introduced self and role at [facility]. Patient sitting in chair, alert and oriented, friend at bedside. Patient willing to participate in assessment and is able to answer all questions appropriately. Care providers, pharmacy, and demographics verified. Strata: 1 PCP: Fanny Specialists: none Preferred Pharmacy: [facility] Insurance: [facility] Prescription Benefit: none Living Will/HPOA: none LNOK: brother, sister in law Living Arrangements: Patient lives with a roommate with special needs in a 2 story home with bed and bath on first floor. Brother and GAVIN live next door. Patient states she was independent at home. Transportation: driving service DME/HHC: Patient has shower chair, cane, walker. Patient has access to electricity. No previous HHC or SNF. Patient states she would like tot return home. CHIDI HARTLEY discussed progress with therapy and possible SNF at discharge. Patient states she would like to discuss with GAVIN. CHIDI HARTLEY provided patient [facility] SNF list to review. Patient states she has no further needs or concerns at this time. CM to follow for discharge planning needs that may arise. Disposition Plan: TBD, anticipate SNF vs HHC pending progress with therapy. Priya CARBALLO, RN, CM
--- NOTE | 2025-01-04 11:04 | CASEMGMT ---
Discharge Planning A list of SNF providers including quality and resource use data and consistent with the patient's preferred geographic region, medical needs, and insurance network was created in CarePort Guide.? This list was provided to the RN NAEEM. Rain De La Rosa, Discharge Planning Asst.
--- NOTE | 2025-01-04 14:35 | CHAPLAIN ---
Type of Pastoral Visit _x__ Initial Visit ___ Follow-up Visit ___ On-call Visit ___ General Patient Visit ___ Spiritual Assessment ___ Family Conference ___ Bereavement ___ Rapid Response ___ Code Blue ___ Other (describe below) Pastoral Care Referral From _x__ Patient ___ Family ___ Nurse ___ Physician ___ Kettle Fry Cook Operator ___ Real Estate Loan Processor ___ Other (describe below) Sacrament/Intervention _x__ Active listening ___ Anointing ___ Taoism ___ Bereavement ___ Communion _x__ Ameena exploration ___ ___ Life review _x__ Prayer ___ Reconciliation ___ Sacrament of Sick _x__ Supportive presence ___ Wedding ___ Other (describe below) Pastoral Comments patient gets off the phone when this stopper maker helper entered the room; pt is welcoming and states her situation and the need to pick a place for therapy now; pt refers to asking her Andrew Parker about advice on where to go; pt requests prayer for her direction and healing; pt denies other concerns or needs
[2025-01-04 15:00] VITALS: BP 123/79; PULSE 90; RESP 17; TEMP 37.8; O2SAT 100
--- NOTE | 2025-01-04 15:17 | CASEMGMT ---
Patient states she discussed discharge planning with her sister and they would like to go to SNF for additional therapy. Patient states she reviewed SNF list and [facility] [place]. Patient had no further questions or concerns. CHIDI HARTLEY updated DC registered nurse first assistant to send referral to [facility]. CM will continue to follow this patient and plan for a safe discharge.
--- NOTE | 2025-01-04 15:33 | CASEMGMT ---
Addendum entered by Rain De La Rosa 01/04/25 16:23: [facility] has accepted and can admit on 01/06. CHIDI CM updated. Rain De La Rosa DC Planning Asst. Original Note: Discharge Planning Referral sent via CarePort to [facility]. Rain De La Rosa DC Planning Asst.
--- NOTE | 2025-01-04 18:02 | PN.HOSP_ITS ---
Reason for Visit
--- NOTE | 2025-01-04 18:02 | PCM.PN.HOSP ---
Reason for Visit Chief Complaint: Fall, L hip pain. Subjective Subjective Patient seen at bedside, patient sitting up in chair talking on the phone, no acute distress Objective Data Objective Data Vital Signs: Vital Signs Temp Pulse Resp BP Pulse Ox O2 Del Method O2 Flow Rate 100.0 F H 90 17 123/79 H 100 Nasal Cannula 3 01/04/25 15:00 01/04/25 15:00 01/04/25 15:00 01/04/25 15:00 01/04/25 15:00 01/04/25 15:00 01/04/25 15:00 Oxygen Flow Rate (L/min) 3 Oxygen Delivery Method Nasal Cannula Weight: 77 kg Body Mass Index (BMI) 26.6 Intake & Output: Intake and Output for Last 24 Hours 01/02/25 01/03/25 01/04/25 23:59 22:59 23:59 Intake Total 2614.58 / 3114.58 1120 / 1120 Output Total 490 / 840 950 / 950 Balance 2124.58 / 2274.58 170 / 170 Lab / Micro Data 01/04/25 07:48 01/04/25 07:48 Labs: Laboratory Results - last 24 hr 01/04/25 07:48: WBC 11.6 H, RBC 3.36 L, Hgb 9.8 L, Hct 30.0 L, MCV 89.3, MCH 29.2, MCHC 32.7, RDW Std Deviation 45.7 H, RDW Coeff of Dexter 14.1, Plt Count 199, MPV 10.4, Immature Gran % (Auto) 0.400, Neut % (Auto) 83.3 H, Lymph % (Auto) 9.5 L, [place] % (Auto) 4.6, Eos % (Auto) 1.9, Baso % (Auto) 0.3, Absolute Neuts (auto) 9.7 H, Absolute Lymphs (auto) 1.10, Nucleated RBC % 0, Sodium 132 L, Potassium 4.2, Chloride 101, Carbon Dioxide 22.1, Anion Gap 9, BUN 17, Creatinine 0.63 L, Estim Creat Clear Calc 65.00, Est GFR (MDRD) Non-Af 93, BUN/Creatinine Ratio 27.1 H, Glucose 103 H, Calcium 8.0, Total Bilirubin 0.63, AST 51 H, ALT 15, Alkaline Phosphatase 61, Total Protein 5.7 L, Albumin 3.3 L, Globulin 2.5, Albumin/Globulin Ratio 1.3 Physical Exam Narrative General: Alert, no apparent distress HEENT: normocephalic Eyes: extraocular movements grossly intact Neck: Supple Respiratory: normal respiratory effort Cardiovascular: Regular rate GI: nondistended Extremities: Moving all extremities Neuro: No overt focal neurological deficits Psych: Reluctant to engage Assessment & Plan Assessment/Plan (1) Closed left hip fracture: PLAN: Plan #General debility, left hip pain s/p mechanical fall w/ left femoral neck nondisplaced impacted fracture -Orthopedic surgery consulted from ED. Will admit to [facility], maintain NPO, continue gentle IVFs, hawthorne placement, monitor I/Os, frequent positioning, fall precautions, as needed pain, anti-emetic regimen. PT/OT following operative intervention. CM consulted for discharge planning. -01/04: Patient's status post left femoral neck fracture with hemiarthroplasty with Dr. Cao 01/03/2025, patient tolerated this well. PT/OT, plan is for placement #GERD -Continue PPI #DVT ppx: Eliquis 2.5 mg twice daily Lolly Lin MD Charges/Coding Visit Charges Inpatient E&M: 64656 Subs Hosp L1
[2025-01-04] MEDS: Senna/Docusate Sodium 1 Tablet 2 TABLET PO (20:16)
[2025-01-04 22:45] VITALS: BP 131/69; PULSE 93; RESP 18; TEMP 36.9; O2SAT 95
[2025-01-05 03:07] VITALS: BMI 35.2
[2025-01-05 03:27] VITALS: BP 138/99; PULSE 85; RESP 18; TEMP 37.1; O2SAT 94
[2025-01-05 06:36] VITALS: O2SAT 94
[2025-01-05 06:37] LABS: Hematocrit 33.7 % (37-47); Hemoglobin 11.0 g/dL (12.0-15.0); Immature Granulocytes Count 0.100 X10^3/uL (0.0-0.0); Mean Corp Hgb Conc 32.6 g/dL (32-36); Mean Corpuscular Volume 88.7 fL (81-99); Mean Platelet Vol. 10.7 fl (6.2-12.0); NRBC Flagged by Analyzer 0 % (0-5); Platelet Count 202 K/mm3 (150-450); RBC Distribution Width CV 13.8 % (11.6-14.6); RBC Distribution Width SD 44.8 fl (35.1-43.9); Red Blood Count 3.80 M/mm3 (4.2-5.4); White Blood Count 16.3 K/mm3 (4.4-11.0)
[2025-01-05 06:59] LABS: Anion Gap 11 (5-15); BUN 18 mg/dL (4-19); BUN/Creat Ratio 22.9 RATIO (10-20); Calcium,Total 8.7 mg/dL (7.6-11.0); Carbon Dioxide 21.2 mmol/L (21.0-32.0); Chloride 98 mmol/L (98-108); Estimated Creatinine Clearance 73.63 ml/min (50-250); Glucose 102 mg/dL (70-99); Potassium 4.4 mmol/L (3.3-5.1)
[2025-01-05 09:30] VITALS: BP 122/75; PULSE 94; RESP 16; TEMP 36.9; O2SAT 95
[2025-01-05] MEDS: Cholecalciferol (VIT D3) 25 MCG TABLET (1,000 UNITS) PO (09:50)
[2025-01-05] MEDS: Senna/Docusate Sodium 1 Tablet 2 TABLET PO ×2 (09:50→21:51)
[2025-01-05] MEDS: APIXABAN 2.5 MG TABLET (WCH) PO ×2 (09:50→21:51)
--- NOTE | 2025-01-05 11:02 | PCM.PN.ORT ---
Subjective Subjective Seen and examined. Doing okay no complaints or concerns. No fevers chills nausea vomiting shortness of breath or chest pain Objective Data Objective Data Vital Signs: Vital Signs Temp Pulse Resp BP Pulse Ox O2 Del Method O2 Flow Rate 98.5 F 94 16 122/75 H 95 Nasal Cannula 2 01/05/25 09:30 01/05/25 09:30 01/05/25 09:30 01/05/25 09:30 01/05/25 09:30 01/05/25 10:00 01/05/25 10:00 Oxygen Flow Rate (L/min) 2 Oxygen Delivery Method Nasal Cannula Weight: 224 lb 10.417 oz Body Mass Index (BMI) 35.2 Intake & Output: Intake and Output for Last 24 Hours 01/03/25 01/04/25 01/05/25 22:59 23:59 23:59 Intake Total 2614.58 / 3114.58 1620 / 1620 0 / 0 Output Total 490 / 840 1600 / 1600 100 / 100 Balance 2124.58 / 2274.58 20 / 20 -100 / -100 Lab / Micro Data 01/05/25 06:25 01/05/25 06:25 Labs: Laboratory Results - last 24 hr 01/05/25 06:25: WBC 16.3 H, RBC 3.80 L, Hgb 11.0 L, Hct 33.7 L, MCV 88.7, MCH 28.9, MCHC 32.6, RDW Std Deviation 44.8 H, RDW Coeff of Dexter 13.8, Plt Count 202, MPV 10.7, Immature Gran % (Auto) 0.600, Neut % (Auto) 80.3 H, Lymph % (Auto) 10.4 L, Yell % (Auto) 6.6, Eos % (Auto) 1.8, Baso % (Auto) 0.3, Absolute Neuts (auto) 13.1 H, Absolute Lymphs (auto) 1.69, Nucleated RBC % 0, Sodium 129 L, Potassium 4.4, Chloride 98, Carbon Dioxide 21.2, Anion Gap 11, BUN 18, Creatinine 0.81, Estim Creat Clear Calc 73.63, Est GFR (MDRD) Non-Af 76, BUN/Creatinine Ratio 22.9 H, Glucose 102 H, Calcium 8.7 Physical Exam Const alert, oriented x3 and no apparent distress General Appearance: cooperative Extremity Extremity Narrative: Left hip dressing clean dry intact compartment soft neurovascular intact left lower extremity EHL tibialis anterior gastrocsoleus intact sensation light touch palpable pedal pulse Assessment & Plan Assessment/Plan (1) Status post hemiarthroplasty of left hip: PLAN: Plan Postop day #2 left hip hemiarthroplasty for fracture PT OT weightbearing as tolerated with her precautions DVT prophylaxis SCDs WICHO hose Eliquis 2.5 mg twice daily for 3 weeks postop Pain control oxycodone and Tylenol Dressings should remain on for 5 days postop then may remove prior to first shower. At which point the incision should be cleaned daily with antibacterial soap and warm water and dry dressing replaced daily at that point. Follow-up in the office 2 weeks postop for wound check staple removal.
--- NOTE | 2025-01-05 14:11 | CASEMGMT ---
RN CM updated patient that she has been accepted by [facility] with anticipated discharge 01/06. Patient voiced appreciation. CM will continue tot follow this patient and plan for a safe discharge.
[2025-01-05 14:20] VITALS: BP 122/72; PULSE 87; RESP 17; TEMP 37.4; O2SAT 97
--- NOTE | 2025-01-05 15:56 | CASEMGMT ---
Social Work SW assisted the patient with completing a POA and LW. A copy is in the patients chart. ANAMIKA Waite
--- NOTE | 2025-01-05 17:03 | PN.HOSP_ITS ---
Reason for Visit
--- NOTE | 2025-01-05 17:03 | PCM.PN.HOSP ---
Reason for Visit Chief Complaint: Fall, L hip pain. Subjective Subjective Sitting up in bed, no acute distress, reports breathing is doing better. Notes that she has probably had some shortness of breath on exertion for a while but denies any increase at this time, no burning on urination, has not had a bowel movement since surgery but no abdominal pain or nausea, denies any productive cough, no chest pain, no swelling lower extremities, reports eating and drinking okay Objective Data Objective Data Vital Signs: Vital Signs Temp Pulse Resp BP Pulse Ox O2 Del Method O2 Flow Rate 99.3 F H 87 17 122/72 H 97 Nasal Cannula 2 01/05/25 14:20 01/05/25 14:20 01/05/25 14:20 01/05/25 14:20 01/05/25 14:20 01/05/25 14:20 01/05/25 14:20 Oxygen Flow Rate (L/min) 2 Oxygen Delivery Method Nasal Cannula Weight: 101.9 kg Body Mass Index (BMI) 35.2 Intake & Output: Intake and Output for Last 24 Hours 01/03/25 01/04/25 01/05/25 22:59 23:59 23:59 Intake Total 2614.58 / 3114.58 1620 / 1620 0 / 0 Output Total 490 / 840 1600 / 1600 100 / 100 Balance 2124.58 / 2274.58 -100 / -100 Lab / Micro Data 01/05/25 06:25 01/05/25 06:25 Labs: Laboratory Results - last 24 hr 01/05/25 06:25: WBC 16.3 H, RBC 3.80 L, Hgb 11.0 L, Hct 33.7 L, MCV 88.7, MCH 28.9, MCHC 32.6, RDW Std Deviation 44.8 H, RDW Coeff of Dexter 13.8, Plt Count 202, MPV 10.7, Immature Gran % (Auto) 0.600, Neut % (Auto) 80.3 H, Lymph % (Auto) 10.4 L, [place] % (Auto) 6.6, Eos % (Auto) 1.8, Baso % (Auto) 0.3, Absolute Neuts (auto) 13.1 H, Absolute Lymphs (auto) 1.69, Nucleated RBC % 0, Sodium 129 L, Potassium 4.4, Chloride 98, Carbon Dioxide 21.2, Anion Gap 11, BUN 18, Creatinine 0.81, Estim Creat Clear Calc 73.63, Est GFR (MDRD) Non-Af 76, BUN/Creatinine Ratio 22.9 H, Glucose 102 H, Calcium 8.7 Physical Exam Narrative General: Alert, oriented, no apparent distress HEENT: Atraumatic, normocephalic Eyes: Anicteric, normal conjunctiva, extraocular movements grossly intact Neck: Supple Respiratory: No overt wheezes or rhonchi, normal respiratory effort Cardiovascular: Regular rate and rhythm GI: Soft, nontender, nondistended Extremities: No edema Musculoskeletal: Moving all extremities Neuro: No overt focal neurological deficits Skin: No rashes appreciated Psych: Cooperative Assessment & Plan Assessment/Plan (1) Closed left hip fracture: PLAN: Plan #General debility, left hip pain s/p mechanical fall w/ left femoral neck nondisplaced impacted fracture -Orthopedic surgery consulted from ED. Will admit to MS, maintain NPO, continue gentle IVFs, hawthorne placement, monitor I/Os, frequent positioning, fall precautions, as needed pain, anti-emetic regimen. PT/OT following operative intervention. CM consulted for discharge planning. -01/04: Patient's status post left femoral neck fracture with hemiarthroplasty with Dr. Cao 01/03/2025, patient tolerated this well. PT/OT, plan is for placement -01/05: Patient still reports having pain but feeling better overall # Low sodium -01/05: Patient 129 today, 132 yesterday, unclear significance, encouraging p.o. intake, no new or acute complaints. Repeat in the a.m., can consider further workup if there is further worsening or any further concerns arise # Elevated white blood cell count -01/05: Elevated since presentation, patient without temperature that meets threshold for febrile (nothing over 100.4) and patient with no focal or localizing complaints concerning for infection, UA on presentation unremarkable, denies productive cough. Will monitor, if patient spikes fever or develops any complaints or if white count further increases tomorrow can consider further workup, supportive care Chronic medical problems and/or problems not being actively addressed during today's encounter: #GERD -Continue PPI #DVT ppx: Eliquis 2.5 mg twice daily Lolly Lin MD Time spent in the patient's overall evaluation,decision-making process, review of diagnostic data, adjustment of management, discussion with other providers, nursing nursing and ancillary staff involved in patient's care documentation, 37 Minutes Charges/Coding Visit Charges Inpatient E&M: 59208 Subs Hosp L2
[2025-01-05 19:08] VITALS: BP 107/50; PULSE 74; RESP 17; TEMP 37.2; O2SAT 95
[2025-01-05 20:29] VITALS: BP 117/65; PULSE 91; RESP 18; TEMP 37.2; O2SAT 94
[2025-01-06 02:17] VITALS: BP 130/75; PULSE 91; RESP 16; TEMP 36.7; O2SAT 95
[2025-01-06 04:53] VITALS: BMI 34.2
[2025-01-06 05:03] LABS: Hematocrit 30.8 % (37-47); Hemoglobin 10.1 g/dL (12.0-15.0); Immature Granulocytes Count 0.100 X10^3/uL (0.0-0.0); Mean Corp Hgb Conc 32.8 g/dL (32-36); Mean Corpuscular Volume 88.0 fL (81-99); Mean Platelet Vol. 10.8 fl (6.2-12.0); NRBC Flagged by Analyzer 0 % (0-5); Platelet Count 193 K/mm3 (150-450); RBC Distribution Width CV 13.8 % (11.6-14.6); RBC Distribution Width SD 44.5 fl (35.1-43.9); Red Blood Count 3.50 M/mm3 (4.2-5.4); White Blood Count 15.1 K/mm3 (4.4-11.0)
[2025-01-06 05:33] LABS: Anion Gap 11 (5-15); BUN 21 mg/dL (4-19); BUN/Creat Ratio 24.1 RATIO (10-20); Calcium,Total 8.6 mg/dL (7.6-11.0); Carbon Dioxide 23.9 mmol/L (21.0-32.0); Chloride 98 mmol/L (98-108); Estimated Creatinine Clearance 68.31 ml/min (50-250); Glucose 103 mg/dL (70-99); Potassium 4.2 mmol/L (3.3-5.1)
[2025-01-06 06:54] VITALS: O2SAT 94
[2025-01-06 08:15] VITALS: O2SAT 91
[2025-01-06 08:35] VITALS: BP 106/63; PULSE 92; RESP 14; TEMP 37.1; O2SAT 97
--- NOTE | 2025-01-06 08:57 | CASEMGMT ---
Discharge Planning Updates sent via CarePort to [facility]. Rain De La Rosa DC Planning Asst.
[2025-01-06] MEDS: APIXABAN 2.5 MG TABLET (WCH) PO (09:38)
[2025-01-06] MEDS: Cholecalciferol (VIT D3) 25 MCG TABLET (1,000 UNITS) PO (09:39)
[2025-01-06] MEDS: Senna/Docusate Sodium 1 Tablet 2 TABLET PO (09:39)
--- NOTE | 2025-01-06 11:11 | PCM.TXEXTCAR ---
Diet Diet Order/Speech Therapy: INPATIENT Hospital Diet / Speech Therapy Order(s) 01/03/25 16:58 Diet: Regular - General Food consistency:: Regular Liquid Consistency:: Regular/Thin Routine Orders/Code Status Suppository Type: Dulcolax 10mg Suppository Frequency: Daily PRN Code Status: DNRCC-A (WITH intubation) DC O2, CPAP, BIPAP needs Home O2 Discharge instructions: Yes Type of respiratory needs?: Oxygen Oxygen frequency: Other Other oxygen liters per minute: 2 Other oxygen frequency: prn Wound(s) LEFT HIP: Wound Type: Surgical Incision Therapies Physical Therapy: Eval and Treat Occupational Therapy: Eval and Treat Problem/Diagnosis (1) Closed left hip fracture: Status: Acute Code(s): S72.002A - Fracture of unspecified part of neck of left femur, initial encounter for closed fracture Plan #General debility, left hip pain s/p mechanical fall w/ left femoral neck nondisplaced impacted fracture #GERD 74-year-old female history of GERD presented [facility] ED 01/03/2025 due to mechanical fall while taking her dog out. She fell and landed on her left hip. Imaging in the ED showed nondisplaced impacted fracture of the left femoral neck. ED discussed with orthopedic surgeon on-call, Dr. Cao, and was recommended medical admission with Ortho consult. Patient underwent left hip hemiarthroplasty 01/03/[address] Cao. Patient did well postoperatively, briefly had a dip in sodium however unclear if this was lab error as the repeat returned to normal. Patient eating and drinking well per her report. Patient been on 2 L as needed of oxygen, she reports even at home she would have problems with shortness of breath on exertion for long period of time but had ignored it. Patient denying any shortness of breath to me and is in no respiratory distress, no productive cough. Still awaiting a bowel movement however reports she feels things are starting to move has no abdominal pain or nausea. On day of discharge no new or acute complaints, denies any changes or concerns in urination. Will need to follow-up with Ortho in 2 weeks - Will need to continue Eliquis 2.5 mg twice daily for 3 weeks postoperatively Allergies/Procedures Done in Hospital Allergies carbamazepine (From Tegretol) Allergy (Verified 01/03/25 03:45) Other Type of Care/Length of Stay Estimated LOS: Convalescent Care Less Than 30 days Type of Care Needed: Skilled Rehab Potential: Good Prognosis: Good Additional Orders/Day of Discharge Day of Discharge: 01/06/25 Dietary and Speech Recommendations Dietitian Recommendations/Changes: Continue regular diet as ordered; trend weights as available and offer ONS as needed. Discharge Plan Admission Admit Date/Time: 01/03/25 05:32 Primary Reason for Your Visit: Fall with left hip fracture Attending Provider: Lolly Lin Primary Care Provider: NAN LEYVA Consulting Providers: Kailyn Rizvi; Joseph Cao Instructions Patient Instructions: ED Fall Prevention Additional Instructions / Restrictions: DISCHARGE INSTRUCTIONS PLEASE READ *Please take this with you to your next doctors appointment* - Will be discharged on 2.5 mg of Eliquis twice daily for 3 weeks postoperatively -Please follow-up with orthopedics in 2 weeks upon discharge. Please call their office to schedule hospital follow-up appointment upon discharge. -Please call your primary care provider's office upon discharge to schedule a hospital follow up within 1 week. -For any concerning signs or symptoms please call 911 or proceed to the nearest emergency department Discharge Orders/Prescriptions Prescriptions: New Eliquis 5 mg Tablet 2.5 mg PO BID 21 Days Qty: 0 0RF sennosides-docusate sodium [Stimulant Laxative Plus] 8.6-50 mg Tablet 2 tab PO BID Qty: 0 0RF calcium carbonate 200 mg calcium (500 mg) Tablet,Chewable 500 mg PO TIDCM Qty: 0 0RF oxycodone 5 mg Tablet 5 mg PO Q4H PRN PRN (Reason: Pain Score 4-10) 3 Days Qty: 20 0RF cholecalciferol (vitamin D3) 25 mcg (1,000 unit) Tablet 25 mcg PO DAILY Qty: 0 0RF Continued omeprazole 40 mg capsule,delayed release(DR/EC) 20 mg PO DAILY Referrals / Follow Up: Joseph Cao DO [Med Staff - Active Staff, Orthopedics] - Within 2 Weeks ANN LEYVA NP-C [Primary Care Provider, Family Practice] Disposition Disposition (needs filled in before D/C Order can be placed): Detention Facility
--- NOTE | 2025-01-06 11:24 | PCM.DC.SUM ---
Providers Date of Admission: 01/03/25 Date of Discharge: 01/06/25 Primary Care Physician: AGATHA DAVIS Consultations 01/03/25 06:23 Consult: Orthopedics Routine Consulting Provider: Joseph Cao Reason for Consult: Fall, L hip fx EMERGENT Consult: No MD Notified: Yes Date Notified: 01/03/25 Time Notified: 05:34 Method of Notification: ED Physician Initiated Reason For Visit: FALL, L HIP FRACTURE Diagnosis Discharge Diagnosis (1) Closed left hip fracture: Status: Acute Code(s): S72.002A - Fracture of unspecified part of neck of left femur, initial encounter for closed fracture Plan #General debility, left hip pain s/p mechanical fall w/ left femoral neck nondisplaced impacted fracture #GERD Medications at Discharge Home Medications omeprazole 40 mg capsule,delayed release 20 mg PO DAILY 01/03/25 apixaban 5 mg tablet (Eliquis) 2.5 mg (1/2 x 5 mg) PO BID 3 weeks #0 tabs 01/06/25 calcium carbonate 500 mg (2.5 x 200 mg calcium (500 mg)) PO TIDCM #0 tabs 01/06/25 cholecalciferol (vitamin D3) 25 mcg (1,000 unit) tablet 25 mcg PO DAILY #0 tabs 01/06/25 oxycodone 5 mg tablet 5 mg PO Q4H PRN PRN Pain Score 4-10 3 days #20 tabs 01/06/25 sennosides 8.6 mg-docusate sodium 50 mg tablet (Stimulant Laxative Plus) 2 tab PO BID #0 tabs 01/06/25 Hospital Course Operations - (Left hip hemiarthroplasty 01/03/[address] Cao) Summary of Care Provided Minutes Spent on Discharge: 21 Hospital Course: 74-year-old female history of GERD presented [facility] ED 01/03/2025 due to mechanical fall while taking her dog out. She fell and landed on her left hip. Imaging in the ED showed nondisplaced impacted fracture of the left femoral neck. ED discussed with orthopedic surgeon on-call, Dr. Cao, and was recommended medical admission with Ortho consult. Patient underwent left hip hemiarthroplasty 01/03/[address] Cao. Patient did well postoperatively, briefly had a dip in sodium however unclear if this was lab error as the repeat returned to normal. Patient eating and drinking well per her report. Patient been on 2 L as needed of oxygen, she reports even at home she would have problems with shortness of breath on exertion for long period of time but had ignored it. Patient denying any shortness of breath to me and is in no respiratory distress, no productive cough. Still awaiting a bowel movement however reports she feels things are starting to move has no abdominal pain or nausea. On day of discharge no new or acute complaints, denies any changes or concerns in urination. Will need to follow-up with Ortho in 2 weeks - Will need to continue Eliquis 2.5 mg twice daily for 3 weeks postoperatively Physical Exam Narrative General: Alert, oriented, no apparent distress HEENT: Atraumatic, normocephalic Eyes: Anicteric, normal conjunctiva, extraocular movements grossly intact Neck: Supple Respiratory: No overt wheezes or rhonchi, normal respiratory effort Cardiovascular: Regular rate and rhythm GI: Soft, nontender, nondistended Extremities: No edema Musculoskeletal: Moving all extremities Neuro: No overt focal neurological deficits Skin: No rashes appreciated Psych: Cooperative Weight / BMI Weight Weight: 99 kg Body Mass Index (BMI) 34.2 ABG / Lab / Microbiology Data 01/06/25 04:25 01/06/25 04:25 Laboratory: Laboratory Results - last 24 hr 01/06/25 04:25: WBC 15.1 H, RBC 3.50 L, Hgb 10.1 L, Hct 30.8 L, MCV 88.0, MCH 28.9, MCHC 32.8, RDW Std Deviation 44.5 H, RDW Coeff of Dexter 13.8, Plt Count 193, MPV 10.8, Immature Gran % (Auto) 0.700, Neut % (Auto) 78.9 H, Lymph % (Auto) 11.3 L, [place] % (Auto) 7.0, Eos % (Auto) 1.8, Baso % (Auto) 0.3, Absolute Neuts (auto) 12.0 H, Absolute Lymphs (auto) 1.71, Nucleated RBC % 0, Sodium 133, Potassium 4.2, Chloride 98, Carbon Dioxide 23.9, Anion Gap 11, BUN 21 H, Creatinine 0.86, Estim Creat Clear Calc 68.31, Est GFR (MDRD) Non-Af 71, BUN/Creatinine Ratio 24.1 H, Glucose 103 H, Calcium 8.6 D/C Instructions DC O2, CPAP, BIPAP Needs Home O2 Discharge instructions: Yes Type of respiratory needs?: Oxygen Oxygen frequency: Other Other oxygen liters per minute: 2 Other oxygen frequency: prn DC home with Oxygen: No Meaningful Use Info Meaningful Use Meaningful Use Diagnoses (Choose all that apply): None applicable Discharge Plan Admission Admit Date/Time: 01/03/25 05:32 Primary Reason for Your Visit: Fall with left hip fracture Attending Provider: Lolly Lin Primary Care Provider: ANN LEYVA Consulting Providers: Kailyn Rizvi; Joseph Cao Instructions Patient Instructions: ED Fall Prevention Additional Instructions / Restrictions: DISCHARGE INSTRUCTIONS PLEASE READ *Please take this with you to your next doctors appointment* - Will be discharged on 2.5 mg of Eliquis twice daily for 3 weeks postoperatively -Please follow-up with orthopedics in 2 weeks upon discharge. Please call their office to schedule hospital follow-up appointment upon discharge. -Please call your primary care provider's office upon discharge to schedule a hospital follow up within 1 week. -For any concerning signs or symptoms please call 911 or proceed to the nearest emergency department Discharge Orders/Prescriptions Prescriptions: New Eliquis 5 mg Tablet 2.5 mg PO BID 21 Days Qty: 0 0RF sennosides-docusate sodium [Stimulant Laxative Plus] 8.6-50 mg Tablet 2 tab PO BID Qty: 0 0RF calcium carbonate 200 mg calcium (500 mg) Tablet,Chewable 500 mg PO TIDCM Qty: 0 0RF oxycodone 5 mg Tablet 5 mg PO Q4H PRN PRN (Reason: Pain Score 4-10) 3 Days Qty: 20 0RF cholecalciferol (vitamin D3) 25 mcg (1,000 unit) Tablet 25 mcg PO DAILY Qty: 0 0RF Continued omeprazole 40 mg capsule,delayed release(DR/EC) 20 mg PO DAILY Referrals / Follow Up: Joseph Cao DO [Med Staff - Active Staff, Orthopedics] - Within 2 Weeks ANN LEYVA SERVICE TECHNICIAN-C [Primary Care Provider, Family Practice] Disposition Disposition (needs filled in before D/C Order can be placed): Shelter Facility Charges/Coding Visit Charges Inpatient E&M: 60140 Disch Hosp
--- NOTE | 2025-01-06 11:49 | PHA.DC_ITS ---
Pharmacy DC Med Reconciliation
--- NOTE | 2025-01-06 11:49 | CASEMGMT ---
Patient has orde for discharge. RN CM in to updated patient that she will discharge to [facility] for skilled LOC. Patient voiced understanding and appreciation and asked for CM to setup transport. Patient had no further questions or concerns. RN CM complete 7000. RN CM updated discharge strategic planning consultant to setup transport and updated SNF and family.
--- NOTE | 2025-01-06 11:49 | PHA.DC.MR.R ---
Pharmacy [place] Med Reconciliation Pharmacy Service has performed discharge medication reconciliation for this patient. The patient's discharge medication list was reviewed for discrepancies and discrepancies were resolved. Medications at Discharge Home Medications omeprazole 40 mg capsule,delayed release 20 mg PO DAILY 01/03/25 apixaban 5 mg tablet (Eliquis) 2.5 mg (1/2 x 5 mg) PO BID 3 weeks #0 tabs 01/06/25 calcium carbonate 500 mg (2.5 x 200 mg calcium (500 mg)) PO TIDCM #0 tabs 01/06/25 cholecalciferol (vitamin D3) 25 mcg (1,000 unit) tablet 25 mcg PO DAILY #0 tabs 01/06/25 oxycodone 5 mg tablet 5 mg PO Q4H PRN PRN Pain Score 4-10 3 days #20 tabs 01/06/25 sennosides 8.6 mg-docusate sodium 50 mg tablet (Stimulant Laxative Plus) 2 tab PO BID #0 tabs 01/06/25
--- NOTE | 2025-01-06 12:34 | CASEMGMT ---
Discharge Planning Discharge orders, signed med list, and transport time sent via [facility] to [facility]. Physicians will transport pt by wheelchair at 1:45p. Nursing, SW, pt, and her GAVIN (Stephanie) updated. Rain De La Rosa DC Planning Asst.
[2025-01-06 12:59] VITALS: BP 130/70; PULSE 92; RESP 16; TEMP 37.2; O2SAT 100
== END 2025-01-06 13:36 | disposition skilled nursing facility (03) | DRG 522 ==
LOC: ED 05:40 → PCU 05:46
PROVIDERS: Orthopaedic Surgery; Admitting Provider Family Medicine; Emergency Provider Emergency Medicine; PCP Nurse Practitioner Family; Visit Provider Internal Medicine
PROC: 0SRS0JA Replacement of Left Hip Joint, Femoral Surface with Synthetic Substitute, Uncemented, Open Approach (ICD-10-PCS; CPT 27125; principal; 2025-01-03 11:00)
DX: S72.002A Fracture of unspecified part of neck of left femur, initial encounter for closed fracture (principal); E66.9 Obesity, unspecified; Z66 Do not resuscitate; W18.39XA Other fall on same level, initial encounter; K21.9 Gastro-esophageal reflux disease without esophagitis; Z68.29 Body mass index [BMI] 29.0-29.9, adult; Z79.899 Other long term (current) drug therapy; Z87.11 Personal history of peptic ulcer disease
CPT/HCPCS: 36415; 51702; 71045; 73502; 73560; 80048; 80053; 81001; 85025; 85610; 85730; 88307; 88311; 93005; 94668; 97116; 97163; 97167; 97530; 97535; 99285; C1776; A4216; J2405

== ENCOUNTER → 2025-01-11 05:00 | Outpatient (REF) | payer OTHER, SELFPAY ==
--- OUTSIDE RECORDS SUMMARY | 2025-01-11 03:56 | XMS RPT_ITS | CCD ---
Author Organization [facility] Care Team Providers Care Meterman Name Role Phone GORDON ANN LUIS Primary Care Physician ANN LEYVA Attending Unavailable GORDON, ANN Primary Care Unavailable White, Kailyn L Admitting Unavailable White, Kailyn L Consulting Unavailable Lolly Lin Attending Unavailable ANN LEYVA Primary Care Unavailable Joseph Cao Consulting Unavailable Lolly Lin Consulting Unavailable GORDON, ANN Primary Care Unavailable White, Kailyn L Attending Unavailable White, Kailyn L Admitting Unavailable White, Kailyn L Consulting Unavailable Lolly Lin Attending Unavailable ANN LEYVA Primary Care Unavailable Joseph Cao Consulting Unavailable Joseph Cao Attending Unavailable Catina Leung Attending Unavailable Allergies Allergy Classification Reported Allergen(s) Allergy Type Date of Onset Reaction(s) Facility (1 source) carBAMazepine Drug Allergy 01-03-2025 [facility] Repository Medications Current Medications Medication Drug Class(es) Dates Sig (Normalized) Sig (Original) omeprazole 40 mg delayed release oral capsule (1 source) Proton Pump Inhibitor Start: 03-18-2024 omeprazole 40 mg oral delayed release capsule Dose : 40 mg = 1 cap(s), Oral, qDay, # 30 cap(s), 1 Refill(s), Pharmacy: [id number], GERD (gastroesophageal reflux disease), 163, cm, 03/18/24 14:10:00 EST, Height, kg, 03/18/24 14:10:00 EST, Dosing Weight Start Date: 03/18/24 Status: Ordered Quantity: 30.0 Unit: cap(s) Repeat number: 2 Indication: Gastro-esophageal reflux disease without esophagitis Problems Problem Classification Problem Date Documented Date Episodic/Chronic Abdominal pain (1 source) Epigastric pain 03-18-2024 Episodic Esophageal disorders (1 source) Gastroesophageal reflux disease 03-18-2024 Chronic Fracture of neck of femur (hip) (2 sources) Fracture of unspecified part of neck of left femur, initial encounter for closed fracture; Translations: [Fracture of unspecified part of neck of left femur, initial encounter for closed fracture] Onset: 01-08-2025 Episodic Other connective tissue disease (2 sources) Presence of left artificial hip joint; Translations: [Presence of left artificial hip joint] Onset: 01-06-2025 Chronic Unclassified (1 source) Patient encounter status 03-18-2024 Results Test Name Value Interpretation Reference Range Facility Basic Metabolic Profile (BMP )on 01-12-2025 BUN Normal 4-19 [facility] Comment on above: Result Comment: Canc elled via OM: Order cancelled - Patient discharged Performed By: #### L 100.0100, L500.2500 #### [facility] [address] [facility] [address] BUN/CRE Normal 10-20 [facility] Comment on above: Result Comment: Canc elled via OM: Order cancelled - Patient discharged Performed By: #### L 100.0100, L500.2500 #### [facility] [address] [facility] [address] Calcium Normal 7.6-11.0 [facility] Comment on above: Result Comment: Canc elled via OM: Order cancelled - Patient discharged Performed By: #### L 100.0100, L500.2500 #### [facility] [address] [place], [address] CL Normal 98-108 [facility] Comment on above: Result Comment: Canc elled via OM: Order cancelled - Patient discharged Performed By: #### L 100.0100, L500.2500 #### [facility] [address] [facility] [address] CO2 Normal 21.0-32.0 [facility] Comment on above: Result Comment: Canc elled via OM: Order cancelled - Patient discharged Performed By: #### L 100.0100, L500.2500 #### [facility] [address] [place], [address] CREAT,SERUM Normal 0.70-1.20 [facility] Comment on above: Result Comment: Canc elled via OM: Order cancelled - Patient discharged Performed By: #### L 100.0100, L500.2500 #### [facility] [address] [place], [address] eGFR Normal >60 [facility] Comment on above: Result Comment: Canc elled via OM: Order cancelled - Patient discharged Performed By: #### L 100.0100, L500.2500 #### [facility] [address] [place], [address] GAP Normal 5-15 [facility] Comment on above: Result Comment: Canc elled via OM: Order cancelled - Patient discharged Performed By: #### L 100.0100, L500.2500 #### [facility] [address] [place], [address] GLU Normal 70-99 [facility] Comment on above: Result Comment: Canc elled via OM: Order cancelled - Patient discharged Performed By: #### L 100.0100, L500.2500 #### [facility] [address] [place], [address] Potassium Normal 3.3-5.1 [facility] Comment on above: Result Comment: Canc elled via OM: Order cancelled - Patient discharged Performed By: #### L 100.0100, L500.2500 #### [facility] [address] [place], [address] Basic Metabolic Profile (BMP) Normal 133-145 [facility] Comment on above: Result Comment: Canc elled via OM: Order cancelled - Patient discharged Performed By: #### L 100.0100, L500.2500 #### [facility] [address] [place], [address] CBC W/Diff, Automatedon 11-1 Absolute Neut Normal 2.0-7.7 [facility] Comment on above: Result Comment: Canc elled via OM: Order cancelled - Patient discharged Performed By: #### L 100.0100, L500.2500 #### [facility] [address] [place], [address] HCT Normal 37-47 [facility] Comment on above: Result Comment: Canc elled via OM: Order cancelled - Patient discharged Performed By: #### L 100.0100, L500.2500 #### [facility] [address] [place], [address] HGB Normal 12.0-15.0 [facility] Comment on above: Result Comment: Canc elled via OM: Order cancelled - Patient discharged Performed By: #### L 100.0100, L500.2500 #### [facility] [address] [place], [address] MCH Normal 27.0-32.0 [facility] Comment on above: Result Comment: Canc elled via OM: Order cancelled - Patient discharged Performed By: #### L 100.0100, L500.2500 #### [facility] [address] [place], [address] MCHC Normal 32-36 [facility] Comment on above: Result Comment: Canc elled via OM: Order cancelled - Patient discharged Performed By: #### L 100.0100, L500.2500 #### [facility] [address] [place], [address] MCV Normal 81-99 [facility] Comment on above: Result Comment: Canc elled via OM: Order cancelled - Patient discharged Performed By: #### L 100.0100, L500.2500 #### [facility] [address] [place], [address] NEUT% Normal 47-70 [facility] Comment on above: Result Comment: Canc elled via OM: Order cancelled - Patient discharged Performed By: #### L 100.0100, L500.2500 #### [facility] [address] [place], [address] PLT Normal 150-450 [facility] Comment on above: Result Comment: Canc elled via OM: Order cancelled - Patient discharged Performed By: #### L 100.0100, L500.2500 #### [facility] [address] [place], [address] RBC Normal 4.2-5.4 [facility] Comment on above: Result Comment: Canc elled via OM: Order cancelled - Patient discharged Performed By: #### L 100.0100, L500.2500 #### [facility] [address] [place], [address] RDW CV Normal 11.6-14.6 [facility] Comment on above: Result Comment: Canc elled via OM: Order cancelled - Patient discharged Performed By: #### L 100.0100, L500.2500 #### [facility] [address] [place], [address] RDW SD Normal 35.1-43.9 [facility] Comment on above: Result Comment: Canc elled via OM: Order cancelled - Patient discharged Performed By: #### L 100.0100, L500.2500 #### [facility] [address] [place], [address] WBC Normal 4.4-11.0 [facility] Comment on above: Result Comment: Canc elled via OM: Order cancelled - Patient discharged Performed By: #### L 100.0100, L500.2500 #### [facility] [address] [place], [address] Basic Metabolic Profile (BMP )on 01-11-2025 BUN Normal 4-19 [facility] Comment on above: Result Comment: Canc elled via OM: Order cancelled - Patient discharged Performed By: #### L 100.0100, L500.2500 #### [facility] [address] [place], [address] BUN/CRE Normal 10-20 [facility] Comment on above: Result Comment: Canc elled via OM: Order cancelled - Patient discharged Performed By: #### L 100.0100, L500.2500 #### [facility] [address] [place], [address] Calcium Normal 7.6-11.0 [facility] Comment on above: Result Comment: Canc elled via OM: Order cancelled - Patient discharged Performed By: #### L 100.0100, L500.2500 #### [facility] [address] [place], [address] CL Normal 98-108 [facility] Comment on above: Result Comment: Canc elled via OM: Order cancelled - Patient discharged Performed By: #### L 100.0100, L500.2500 #### [facility] [address] [place], [address] CO2 Normal 21.0-32.0 [facility] Comment on above: Result Comment: Canc elled via OM: Order cancelled - Patient discharged Performed By: #### L 100.0100, L500.2500 #### [facility] [address] [place], [address] CREAT,SERUM Normal 0.70-1.20 [facility] Comment on above: Result Comment: Canc elled via OM: Order cancelled - Patient discharged Performed By: #### L 100.0100, L500.2500 #### [facility] [address] [place], [address] eGFR Normal >60 [facility] Comment on above: Result Comment: Canc elled via OM: Order cancelled - Patient discharged Performed By: #### L 100.0100, L500.2500 #### [facility] [address] [place], [address] GAP Normal 5-15 [facility] Comment on above: Result Comment: Canc elled via OM: Order cancelled - Patient discharged Performed By: #### L 100.0100, L500.2500 #### [facility] [address] [place], [address] GLU Normal 70-99 [facility] Comment on above: Result Comment: Canc elled via OM: Order cancelled - Patient discharged Performed By: #### L 100.0100, L500.2500 #### [facility] [address] [place], [address] Potassium Normal 3.3-5.1 [facility] Comment on above: Result Comment: Canc elled via OM: Order cancelled - Patient discharged Performed By: #### L 100.0100, L500.2500 #### [facility] [address] [place], [address] Basic Metabolic Profile (BMP) Normal 133-145 [facility] Comment on above: Result Comment: Canc elled via OM: Order cancelled - Patient discharged Performed By: #### L 100.0100, L500.2500 #### [facility] [address] [place], [address] CBC W/Diff, Automatedon 11-1 0-2024 Absolute Neut Normal 2.0-7.7 [facility] Comment on above: Result Comment: Canc elled via OM: Order cancelled - Patient discharged Performed By: #### L 100.0100, L500.2500 #### [facility] [address] [place], [address] HCT Normal 37-47 [facility] Comment on above: Result Comment: Canc elled via OM: Order cancelled - Patient discharged Performed By: #### L 100.0100, L500.2500 #### [facility] [address] [place], [address] HGB Normal 12.0-15.0 [facility] Comment on above: Result Comment: Canc elled via OM: Order cancelled - Patient discharged Performed By: #### L 100.0100, L500.2500 #### [facility] [address] [place], [address] MCH Normal 27.0-32.0 [facility] Comment on above: Result Comment: Canc elled via OM: Order cancelled - Patient discharged Performed By: #### L 100.0100, L500.2500 #### [facility] [address] [place], [address] MCHC Normal 32-36 [facility] Comment on above: Result Comment: Canc elled via OM: Order cancelled - Patient discharged Performed By: #### L 100.0100, L500.2500 #### [facility] [address] [place], [address] MCV Normal 81-99 [facility] Comment on above: Result Comment: Canc elled via OM: Order cancelled - Patient discharged Performed By: #### L 100.0100, L500.2500 #### [facility] [address] [place], [address] NEUT% Normal 47-70 [facility] Comment on above: Result Comment: Canc elled via OM: Order cancelled - Patient discharged Performed By: #### L 100.0100, L500.2500 #### [facility] [address] [place], [address] PLT Normal 150-450 [facility] Comment on above: Result Comment: Canc elled via OM: Order cancelled - Patient discharged Performed By: #### L 100.0100, L500.2500 #### [facility] [address] [place], [address] RBC Normal 4.2-5.4 [facility] Comment on above: Result Comment: Canc elled via OM: Order cancelled - Patient discharged Performed By: #### L 100.0100, L500.2500 #### [facility] [address] [place], [address] RDW CV Normal 11.6-14.6 [facility] Comment on above: Result Comment: Canc elled via OM: Order cancelled - Patient discharged Performed By: #### L 100.0100, L500.2500 #### [facility] [address] [place], [address] RDW SD Normal 35.1-43.9 [facility] Comment on above: Result Comment: Canc elled via OM: Order cancelled - Patient discharged Performed By: #### L 100.0100, L500.2500 #### [facility] [address] [place], [address] WBC Normal 4.4-11.0 [facility] Comment on above: Result Comment: Canc elled via OM: Order cancelled - Patient discharged Performed By: #### L 100.0100, L500.2500 #### [facility] [address] [place], [address] Basic Metabolic Profile (BMP )on 01-10-2025 BUN Normal 4-19 [facility] Comment on above: Result Comment: Canc elled via OM: Order cancelled - Patient discharged Performed By: #### L 500.2500, L100.0100 #### [facility] [address] [place], [address] BUN/CRE Normal 10-20 [facility] Comment on above: Result Comment: Canc elled via OM: Order cancelled - Patient discharged Performed By: #### L 500.2500, L100.0100 #### [facility] [address] [place], [address] Calcium Normal 7.6-11.0 [facility] Comment on above: Result Comment: Canc elled via OM: Order cancelled - Patient discharged Performed By: #### L 500.2500, L100.0100 #### [facility] [address] [place], [address] CL Normal 98-108 [facility] Comment on above: Result Comment: Canc elled via OM: Order cancelled - Patient discharged Performed By: #### L 500.2500, L100.0100 #### [facility] [address] [place], [address] CO2 Normal 21.0-32.0 [facility] Comment on above: Result Comment: Canc elled via OM: Order cancelled - Patient discharged Performed By: #### L 500.2500, L100.0100 #### [facility] [address] [place], [address] CREAT,SERUM Normal 0.70-1.20 [facility] Comment on above: Result Comment: Canc elled via OM: Order cancelled - Patient discharged Performed By: #### L 500.2500, L100.0100 #### [facility] [address] [place], [address] eGFR Normal >60 [facility] Comment on above: Result Comment: Canc elled via OM: Order cancelled - Patient discharged Performed By: #### L 500.2500, L100.0100 #### [facility] [address] [place], [address] GAP Normal 5-15 [facility] Comment on above: Result Comment: Canc elled via OM: Order cancelled - Patient discharged Performed By: #### L 500.2500, L100.0100 #### [facility] [address] [place], [address] GLU Normal 70-99 [facility] Comment on above: Result Comment: Canc elled via OM: Order cancelled - Patient discharged Performed By: #### L 500.2500, L100.0100 #### [facility] [address] [place], [address] Potassium Normal 3.3-5.1 [facility] Comment on above: Result Comment: Canc elled via OM: Order cancelled - Patient discharged Performed By: #### L 500.2500, L100.0100 #### [facility] [address] [place], [address] Basic Metabolic Profile (BMP) Normal 133-145 [facility] Comment on above: Result Comment: Canc elled via OM: Order cancelled - Patient discharged Performed By: #### L 500.2500, L100.0100 #### [facility] [address] [place], [address] CBC W/Diff, Automatedon 11-0 Absolute Neut Normal 2.0-7.7 [facility] Comment on above: Result Comment: Canc elled via OM: Order cancelled - Patient discharged Performed By: #### L 500.2500, L100.0100 #### [facility] [address] [place], [address] HCT Normal 37-47 [facility] Comment on above: Result Comment: Canc elled via OM: Order cancelled - Patient discharged Performed By: #### L 500.2500, L100.0100 #### [facility] [address] [place], [address] HGB Normal 12.0-15.0 [facility] Comment on above: Result Comment: Canc elled via OM: Order cancelled - Patient discharged Performed By: #### L 500.2500, L100.0100 #### [facility] [address] [place], [address] MCH Normal 27.0-32.0 [facility] Comment on above: Result Comment: Canc elled via OM: Order cancelled - Patient discharged Performed By: #### L 500.2500, L100.0100 #### [facility] [address] [place], [address] MCHC Normal 32-36 [facility] Comment on above: Result Comment: Canc elled via OM: Order cancelled - Patient discharged Performed By: #### L 500.2500, L100.0100 #### [facility] [address] [place], [address] MCV Normal 81-99 [facility] Comment on above: Result Comment: Canc elled via OM: Order cancelled - Patient discharged Performed By: #### L 500.2500, L100.0100 #### [facility] [address] [place], [address] NEUT% Normal 47-70 [facility] Comment on above: Result Comment: Canc elled via OM: Order cancelled - Patient discharged Performed By: #### L 500.2500, L100.0100 #### [facility] [address] [place], [address] PLT Normal 150-450 [facility] Comment on above: Result Comment: Canc elled via OM: Order cancelled - Patient discharged Performed By: #### L 500.2500, L100.0100 #### [facility] [address] [place], [address] RBC Normal 4.2-5.4 [facility] Comment on above: Result Comment: Canc elled via OM: Order cancelled - Patient discharged Performed By: #### L 500.2500, L100.0100 #### [facility] [address] [place], [address] RDW CV Normal 11.6-14.6 [facility] Comment on above: Result Comment: Canc elled via OM: Order cancelled - Patient discharged Performed By: #### L 500.2500, L100.0100 #### [facility] [address] [place], [address] RDW SD Normal 35.1-43.9 [facility] Comment on above: Result Comment: Canc elled via OM: Order cancelled - Patient discharged Performed By: #### L 500.2500, L100.0100 #### [facility] [address] [place], [address] WBC Normal 4.4-11.0 [facility] Comment on above: Result Comment: Canc elled via OM: Order cancelled - Patient discharged Performed By: #### L 500.2500, L100.0100 #### [facility] [address] [place], [address] Basic Metabolic Profile (BMP )on 01-09-2025 BUN Normal 4-19 [facility] Comment on above: Result Comment: Canc elled via OM: Order cancelled - Patient discharged Performed By: #### L 500.2500, L100.0100 #### [facility] [address] [place], [address] BUN/CRE Normal 10-20 [facility] Comment on above: Result Comment: Canc elled via OM: Order cancelled - Patient discharged Performed By: #### L 500.2500, L100.0100 #### [facility] [address] [place], [address] Calcium Normal 7.6-11.0 [facility] Comment on above: Result Comment: Canc elled via OM: Order cancelled - Patient discharged Performed By: #### L 500.2500, L100.0100 #### [facility] [address] [place], [address] CL Normal 98-108 [facility] Comment on above: Result Comment: Canc elled via OM: Order cancelled - Patient discharged Performed By: #### L 500.2500, L100.0100 #### [facility] [address] [place], [address] CO2 Normal 21.0-32.0 [facility] Comment on above: Result Comment: Canc elled via OM: Order cancelled - Patient discharged Performed By: #### L 500.2500, L100.0100 #### [facility] [address] [place], [address] CREAT,SERUM Normal 0.70-1.20 [facility] Comment on above: Result Comment: Canc elled via OM: Order cancelled - Patient discharged Performed By: #### L 500.2500, L100.0100 #### [facility] [address] [place], [address] eGFR Normal >60 [facility] Comment on above: Result Comment: Canc elled via OM: Order cancelled - Patient discharged Performed By: #### L 500.2500, L100.0100 #### [facility] [address] [place], [address] GAP Normal 5-15 [facility] Comment on above: Result Comment: Canc elled via OM: Order cancelled - Patient discharged Performed By: #### L 500.2500, L100.0100 #### [facility] [address] [place], [address] GLU Normal 70-99 [facility] Comment on above: Result Comment: Canc elled via OM: Order cancelled - Patient discharged Performed By: #### L 500.2500, L100.0100 #### [facility] [address] [place], [address] Potassium Normal 3.3-5.1 [facility] Comment on above: Result Comment: Canc elled via OM: Order cancelled - Patient discharged Performed By: #### L 500.2500, L100.0100 #### [facility] [address] [place], [address] Basic Metabolic Profile (BMP) Normal 133-145 [facility] Comment on above: Result Comment: Canc elled via OM: Order cancelled - Patient discharged Performed By: #### L 500.2500, L100.0100 #### [facility] [address] [place], [address] CBC W/Diff, Automatedon 11-0 8-2024 Absolute Neut Normal 2.0-7.7 [facility] Comment on above: Result Comment: Canc elled via OM: Order cancelled - Patient discharged Performed By: #### L 500.2500, L100.0100 #### [facility] [address] [place], [address] HCT Normal 37-47 [facility] Comment on above: Result Comment: Canc elled via OM: Order cancelled - Patient discharged Performed By: #### L 500.2500, L100.0100 #### [facility] [address] [place], [address] HGB Normal 12.0-15.0 [facility] Comment on above: Result Comment: Canc elled via OM: Order cancelled - Patient discharged Performed By: #### L 500.2500, L100.0100 #### [facility] [address] [place], [address] MCH Normal 27.0-32.0 [facility] Comment on above: Result Comment: Canc elled via OM: Order cancelled - Patient discharged Performed By: #### L 500.2500, L100.0100 #### [facility] [address] [place], [address] MCHC Normal 32-36 [facility] Comment on above: Result Comment: Canc elled via OM: Order cancelled - Patient discharged Performed By: #### L 500.2500, L100.0100 #### [facility] [address] [place], [address] MCV Normal 81-99 [facility] Comment on above: Result Comment: Canc elled via OM: Order cancelled - Patient discharged Performed By: #### L 500.2500, L100.0100 #### [facility] [address] [place], [address] NEUT% Normal 47-70 [facility] Comment on above: Result Comment: Canc elled via OM: Order cancelled - Patient discharged Performed By: #### L 500.2500, L100.0100 #### [facility] [address] [place], [address] PLT Normal 150-450 [facility] Comment on above: Result Comment: Canc elled via OM: Order cancelled - Patient discharged Performed By: #### L 500.2500, L100.0100 #### [facility] [address] [place], [address] RBC Normal 4.2-5.4 [facility] Comment on above: Result Comment: Canc elled via OM: Order cancelled - Patient discharged Performed By: #### L 500.2500, L100.0100 #### [facility] [address] [place], [address] RDW CV Normal 11.6-14.6 [facility] Comment on above: Result Comment: Canc elled via OM: Order cancelled - Patient discharged Performed By: #### L 500.2500, L100.0100 #### [facility] [address] [place], [address] RDW SD Normal 35.1-43.9 [facility] Comment on above: Result Comment: Canc elled via OM: Order cancelled - Patient discharged Performed By: #### L 500.2500, L100.0100 #### [facility] [address] [place], [address] WBC Normal 4.4-11.0 [facility] Comment on above: Result Comment: Canc elled via OM: Order cancelled - Patient discharged Performed By: #### L 500.2500, L100.0100 #### [facility] [address] [place], [address] Basic Metabolic Profile (BMP )on 01-08-2025 BUN Normal 4-19 [facility] Comment on above: Result Comment: Canc elled via OM: Order cancelled - Patient discharged Performed By: #### L 500.2500, L100.0100 #### [facility] [address] [place], [address] BUN/CRE Normal 10-20 [facility] Comment on above: Result Comment: Canc elled via OM: Order cancelled - Patient discharged Performed By: #### L 500.2500, L100.0100 #### [facility] [address] [place], [address] Calcium Normal 7.6-11.0 [facility] Comment on above: Result Comment: Canc elled via OM: Order cancelled - Patient discharged Performed By: #### L 500.2500, L100.0100 #### [facility] [address] [place], [address] CL Normal 98-108 [facility] Comment on above: Result Comment: Canc elled via OM: Order cancelled - Patient discharged Performed By: #### L 500.2500, L100.0100 #### [facility] [address] [place], [address] CO2 Normal 21.0-32.0 [facility] Comment on above: Result Comment: Canc elled via OM: Order cancelled - Patient discharged Performed By: #### L 500.2500, L100.0100 #### [facility] [address] [place], [address] CREAT,SERUM Normal 0.70-1.20 [facility] Comment on above: Result Comment: Canc elled via OM: Order cancelled - Patient discharged Performed By: #### L 500.2500, L100.0100 #### [facility] [address] [place], [address] eGFR Normal >60 [facility] Comment on above: Result Comment: Canc elled via OM: Order cancelled - Patient discharged Performed By: #### L 500.2500, L100.0100 #### [facility] [address] [place], [address] GAP Normal 5-15 [facility] Comment on above: Result Comment: Canc elled via OM: Order cancelled - Patient discharged Performed By: #### L 500.2500, L100.0100 #### [facility] [address] [place], [address] GLU Normal 70-99 [facility] Comment on above: Result Comment: Canc elled via OM: Order cancelled - Patient discharged Performed By: #### L 500.2500, L100.0100 #### [facility] [address] [place], [address] Potassium Normal 3.3-5.1 [facility] Comment on above: Result Comment: Canc elled via OM: Order cancelled - Patient discharged Performed By: #### L 500.2500, L100.0100 #### [facility] [address] [place], [address] Basic Metabolic Profile (BMP) Normal 133-145 [facility] Comment on above: Result Comment: Canc elled via OM: Order cancelled - Patient discharged Performed By: #### L 500.2500, L100.0100 #### [facility] [address] [place], [address] CBC W/Diff, Automatedon 11-0 Absolute Neut Normal 2.0-7.7 [facility] Comment on above: Result Comment: Canc elled via OM: Order cancelled - Patient discharged Performed By: #### L 500.2500, L100.0100 #### [facility] [address] [place], [address] HCT Normal 37-47 [facility] Comment on above: Result Comment: Canc elled via OM: Order cancelled - Patient discharged Performed By: #### L 500.2500, L100.0100 #### [facility] [address] [place], [address] HGB Normal 12.0-15.0 [facility] Comment on above: Result Comment: Canc elled via OM: Order cancelled - Patient discharged Performed By: #### L 500.2500, L100.0100 #### [facility] [address] [place], [address] MCH Normal 27.0-32.0 [facility] Comment on above: Result Comment: Canc elled via OM: Order cancelled - Patient discharged Performed By: #### L 500.2500, L100.0100 #### [facility] [address] [place], [address] MCHC Normal 32-36 [facility] Comment on above: Result Comment: Canc elled via OM: Order cancelled - Patient discharged Performed By: #### L 500.2500, L100.0100 #### [facility] [address] [place], [address] MCV Normal 81-99 [facility] Comment on above: Result Comment: Canc elled via OM: Order cancelled - Patient discharged Performed By: #### L 500.2500, L100.0100 #### [facility] [address] [place], [address] NEUT% Normal 47-70 [facility] Comment on above: Result Comment: Canc elled via OM: Order cancelled - Patient discharged Performed By: #### L 500.2500, L100.0100 #### [facility] [address] [place], [address] PLT Normal 150-450 [facility] Comment on above: Result Comment: Canc elled via OM: Order cancelled - Patient discharged Performed By: #### L 500.2500, L100.0100 #### [facility] [address] [place], [address] RBC Normal 4.2-5.4 [facility] Comment on above: Result Comment: Canc elled via OM: Order cancelled - Patient discharged Performed By: #### L 500.2500, L100.0100 #### [facility] [address] [place], [address] RDW CV Normal 11.6-14.6 [facility] Comment on above: Result Comment: Canc elled via OM: Order cancelled - Patient discharged Performed By: #### L 500.2500, L100.0100 #### [facility] [address] [place], [address] RDW SD Normal 35.1-43.9 [facility] Comment on above: Result Comment: Canc elled via OM: Order cancelled - Patient discharged Performed By: #### L 500.2500, L100.0100 #### [facility] [address] [place], [address] WBC Normal 4.4-11.0 [facility] Comment on above: Result Comment: Canc elled via OM: Order cancelled - Patient discharged Performed By: #### L 500.2500, L100.0100 #### [facility] [address] [place], [address] Basic Metabolic Profile (BMP )on 01-07-2025 BUN Normal 4-19 [facility] Comment on above: Result Comment: Canc elled via OM: Order cancelled - Patient discharged Performed By: #### L 500.2500, L100.0100 #### [facility] [address] [place], [address] BUN/CRE Normal 10-20 [facility] Comment on above: Result Comment: Canc elled via OM: Order cancelled - Patient discharged Performed By: #### L 500.2500, L100.0100 #### [facility] [address] [place], [address] Calcium Normal 7.6-11.0 [facility] Comment on above: Result Comment: Canc elled via OM: Order cancelled - Patient discharged Performed By: #### L 500.2500, L100.0100 #### [facility] [address] [place], [address] CL Normal 98-108 [facility] Comment on above: Result Comment: Canc elled via OM: Order cancelled - Patient discharged Performed By: #### L 500.2500, L100.0100 #### [facility] [address] [place], [address] CO2 Normal 21.0-32.0 [facility] Comment on above: Result Comment: Canc elled via OM: Order cancelled - Patient discharged Performed By: #### L 500.2500, L100.0100 #### [facility] [address] [place], [address] CREAT,SERUM Normal 0.70-1.20 [facility] Comment on above: Result Comment: Canc elled via OM: Order cancelled - Patient discharged Performed By: #### L 500.2500, L100.0100 #### [facility] [address] [place], [address] eGFR Normal >60 [facility] Comment on above: Result Comment: Canc elled via OM: Order cancelled - Patient discharged Performed By: #### L 500.2500, L100.0100 #### [facility] [address] [place], [address] GAP Normal 5-15 [facility] Comment on above: Result Comment: Canc elled via OM: Order cancelled - Patient discharged Performed By: #### L 500.2500, L100.0100 #### [facility] [address] [place], [address] GLU Normal 70-99 [facility] Comment on above: Result Comment: Canc elled via OM: Order cancelled - Patient discharged Performed By: #### L 500.2500, L100.0100 #### [facility] [address] [place], [address] Potassium Normal 3.3-5.1 [facility] Comment on above: Result Comment: Canc elled via OM: Order cancelled - Patient discharged Performed By: #### L 500.2500, L100.0100 #### [facility] [address] [place], [address] Basic Metabolic Profile (BMP) Normal 133-145 [facility] Comment on above: Result Comment: Canc elled via OM: Order cancelled - Patient discharged Performed By: #### L 500.2500, L100.0100 #### [facility] [address] [place], [address] CBC W/Diff, Automatedon 11-0 -2024 Absolute Neut Normal 2.0-7.7 [facility] Comment on above: Result Comment: Canc elled via OM: Order cancelled - Patient discharged Performed By: #### L 500.2500, L100.0100 #### [facility] [address] [place], [address] HCT Normal 37-47 [facility] Comment on above: Result Comment: Canc elled via OM: Order cancelled - Patient discharged Performed By: #### L 500.2500, L100.0100 #### [facility] [address] [place], [address] HGB Normal 12.0-15.0 [facility] Comment on above: Result Comment: Canc elled via OM: Order cancelled - Patient discharged Performed By: #### L 500.2500, L100.0100 #### [facility] [address] [place], [address] MCH Normal 27.0-32.0 [facility] Comment on above: Result Comment: Canc elled via OM: Order cancelled - Patient discharged Performed By: #### L 500.2500, L100.0100 #### [facility] [address] [place], [address] MCHC Normal 32-36 [facility] Comment on above: Result Comment: Canc elled via OM: Order cancelled - Patient discharged Performed By: #### L 500.2500, L100.0100 #### [facility] [address] [place], [address] MCV Normal 81-99 [facility] Comment on above: Result Comment: Canc elled via OM: Order cancelled - Patient discharged Performed By: #### L 500.2500, L100.0100 #### [facility] [address] [place], [address] NEUT% Normal 47-70 [facility] Comment on above: Result Comment: Canc elled via OM: Order cancelled - Patient discharged Performed By: #### L 500.2500, L100.0100 #### [facility] [address] [place], [address] PLT Normal 150-450 [facility] Comment on above: Result Comment: Canc elled via OM: Order cancelled - Patient discharged Performed By: #### L 500.2500, L100.0100 #### [facility] [address] [place], [address] RBC Normal 4.2-5.4 [facility] Comment on above: Result Comment: Canc elled via OM: Order cancelled - Patient discharged Performed By: #### L 500.2500, L100.0100 #### [facility] [address] [place], [address] RDW CV Normal 11.6-14.6 [facility] Comment on above: Result Comment: Canc elled via OM: Order cancelled - Patient discharged Performed By: #### L 500.2500, L100.0100 #### [facility] [address] [place], [address] RDW SD Normal 35.1-43.9 [facility] Comment on above: Result Comment: Canc elled via OM: Order cancelled - Patient discharged Performed By: #### L 500.2500, L100.0100 #### [facility] [address] [place], [address] WBC Normal 4.4-11.0 [facility] Comment on above: Result Comment: Canc elled via OM: Order cancelled - Patient discharged Performed By: #### L 500.2500, L100.0100 #### [facility] [address] [place], [address] Basic Metabolic Profile (BMP )on 01-06-2025 BUN/CRE 24.1 RATIO High 10-20 [facility] Comment on above: Performed By: #### L 500.2500, L100.0100 #### [facility] [address] [place], [address] Calcium [Mass/Vol] 8.6 mg/dL Normal 7.6-11.0 [facility] Comment on above: Performed By: #### L 500.2500, L100.0100 #### [facility] [address] [place], [address] Chloride [Moles/Vol] 98 mmol/L Normal 98-108 [facility] Comment on above: Performed By: #### L 500.2500, L100.0100 #### [facility] [address] [place], [address] CO2 [Moles/Vol] 23.9 mmol/L Normal 21.0-32.0 [facility] Comment on above: Performed By: #### L 500.2500, L100.0100 #### [facility] [address] [place], [address] Creatinine [Mass/Vol] 0.86 mg/dL Normal 0.70-1.20 [facility] Comment on above: Performed By: #### L 500.2500, L100.0100 #### [facility] [address] [place], [address] ECRCL 68.31 ml/min Normal 50-250 [facility] Comment on above: Performed By: #### L 500.2500, L100.0100 #### [facility] [address] [place], [address] GAP 11 Normal 5-15 [facility] Comment on above: Performed By: #### L 500.2500, L100.0100 #### [facility] [address] [place], [address] GFR/1.73 sq M.predicted among non-blacks MDRD (S/P/Bld) [Vol rate/Area] 71 mL/min/{1.73_m2} Normal >60 [facility] Comment on above: Result Comment: mL/m in/1.73m2 CKD-EPI Creatinine Equation (2020) Performed By: #### L 500.2500, L100.0100 #### [facility] [address] [place], [address] Glucose [Mass/Vol] 103 mg/dL High 70-99 [facility] Comment on above: Performed By: #### L 500.2500, L100.0100 #### [facility] [address] [place], [address] Potassium [Moles/Vol] 4.2 mmol/L Normal 3.3-5.1 [facility] Comment on above: Performed By: #### L 500.2500, L100.0100 #### [facility] [address] [place], [address] Sodium [Moles/Vol] 133 mmol/L Normal 133-145 [facility] Comment on above: Performed By: #### L 500.2500, L100.0100 #### [facility] [address] [place], [address] Urea nitrogen [Mass/Vol] 21 mg/dL High 4-19 [facility] Comment on above: Performed By: #### L 500.2500, L100.0100 #### [facility] [address] [place], [address] CBC W/Diff, Automatedon 11-0 5-2025 Absolute Lymph 1.71 X10 3/uL Normal 0.83-4.51 [facility] Comment on above: Performed By: #### L 500.2500, L100.0100 #### [facility] [address] [place], [address] Absolute Neut 12.0 X10 3/uL High 2.0-7.7 [facility] Comment on above: Performed By: #### L 500.2500, L100.0100 #### [facility] [address] [place], [address] Basophils/100 WBC (Bld) 0.3 % Normal 0-1 [facility] Comment on above: Performed By: #### L 500.2500, L100.0100 #### [facility] [address] [place], [address] Eosinophils/100 WBC (Bld) 1.8 % Normal 0-5 [facility] Comment on above: Performed By: #### L 500.2500, L100.0100 #### [facility] [address] [place], [address] Erythrocyte distribution width (RBC) [Ratio] 13.8 % Normal 11.6-14.6 [facility] Comment on above: Performed By: #### L 500.2500, L100.0100 #### [facility] [address] [place], [address] Hematocrit (Bld) [Volume fraction] 30.8 % Low 37-47 [facility] Comment on above: Performed By: #### L 500.2500, L100.0100 #### [facility] [address] [place], [address] Hemoglobin (Bld) [Mass/Vol] 10.1 g/dL Low 12.0-15.0 [facility] Comment on above: Performed By: #### L 500.2500, L100.0100 #### [facility] [address] [place], [address] IG% 0.700 Normal 0.0-0.9 [facility] Comment on above: Result Comment: IG% - Immature Granulocytes (promyelocytes, myelocytes and metamyelocytes) > 1% indicates that a LEFT SHIFT is Present. Performed By: #### L 500.2500, L100.0100 #### [facility] [facility] [address] [place], [address] Lymphocytes/100 WBC (Bld) 11.3 % Low 19-41 [facility] Comment on above: Performed By: #### L 500.2500, L100.0100 #### [facility] [address] [place], [address] MCH (RBC) [Entitic mass] 28.9 pg Normal 27.0-32.0 [facility] Comment on above: Performed By: #### L 500.2500, L100.0100 #### [facility] [address] [place], [address] MCHC (RBC) [Mass/Vol] 32.8 g/dL Normal 32-36 [facility] Comment on above: Performed By: #### L 500.2500, L100.0100 #### [facility] [address] [place], [address] MCV (RBC) [Entitic vol] 88.0 fL Normal 81-99 [facility] Comment on above: Performed By: #### L 500.2500, L100.0100 #### [facility] [address] [place], [address] Monocytes/100 WBC (Bld) 7.0 % Normal 0-10 [facility] Comment on above: Performed By: #### L 500.2500, L100.0100 #### [facility] [address] [place], [address] Neutrophils/100 WBC (Bld) 78.9 % High 47-70 [facility] Comment on above: Performed By: #### L 500.2500, L100.0100 #### [facility] [address] [place], [address] Nucleated RBC (Bld) [#/Vol] 0 10*3/uL Normal 0-5 [facility] Comment on above: Performed By: #### L 500.2500, L100.0100 #### [facility] [address] [place], [address] Platelet mean volume (Bld) [Entitic vol] 10.8 fL Normal 6.2-12.0 [facility] Comment on above: Performed By: #### L 500.2500, L100.0100 #### [facility] [address] [place], [address] Platelets (Bld) [#/Vol] 193 10*3/uL Normal 150-450 [facility] Comment on above: Performed By: #### L 500.2500, L100.0100 #### [facility] [address] [place], [address] RBC (Bld) [#/Vol] 3.50 10*6/uL Low 4.2-5.4 [facility] Comment on above: Performed By: #### L 500.2500, L100.0100 #### [facility] [address] [place], [address] RDW SD 44.5 fl High 35.1-43.9 [facility] Comment on above: Performed By: #### L 500.2500, L100.0100 #### [facility] [address] [place], [address] WBC (Bld) [#/Vol] 15.1 10*3/uL High 4.4-11.0 [facility] Comment on above: Performed By: #### L 500.2500, L100.0100 #### [facility] [address] [place], [address] Basic Metabolic Profile (BMP )on 01-05-2025 BUN/CRE 22.9 RATIO High 10-20 [facility] Comment on above: Performed By: #### L 500.2500, L100.0100 #### [facility] [address] [place], [address] Calcium [Mass/Vol] 8.7 mg/dL Normal 7.6-11.0 [facility] Comment on above: Performed By: #### L 500.2500, L100.0100 #### [facility] [address] [place], [address] Chloride [Moles/Vol] 98 mmol/L Normal 98-108 [facility] Comment on above: Performed By: #### L 500.2500, L100.0100 #### [facility] [address] [place], [address] CO2 [Moles/Vol] 21.2 mmol/L Normal 21.0-32.0 [facility] Comment on above: Performed By: #### L 500.2500, L100.0100 #### [facility] [address] [place], [address] Creatinine [Mass/Vol] 0.81 mg/dL Normal 0.70-1.20 [facility] Comment on above: Performed By: #### L 500.2500, L100.0100 #### [facility] [address] [place], [address] ECRCL 73.63 ml/min Normal 50-250 [facility] Comment on above: Performed By: #### L 500.2500, L100.0100 #### [facility] [address] [place], [address] GAP 11 Normal 5-15 [facility] Comment on above: Performed By: #### L 500.2500, L100.0100 #### [facility] [address] [place], [address] GFR/1.73 sq M.predicted among non-blacks MDRD (S/P/Bld) [Vol rate/Area] 76 mL/min/{1.73_m2} Normal >60 [facility] Comment on above: Result Comment: mL/m in/1.73m2 CKD-EPI Creatinine Equation (2020) Performed By: #### L 500.2500, L100.0100 #### [facility] [address] [place], [address] Glucose [Mass/Vol] 102 mg/dL High 70-99 [facility] Comment on above: Performed By: #### L 500.2500, L100.0100 #### [facility] [address] [place], [address] Potassium [Moles/Vol] 4.4 mmol/L Normal 3.3-5.1 [facility] Comment on above: Result Comment: Hemo lysis present, Results??could be affected. ?? Performed By: #### L 500.2500, L100.0100 #### [facility] [address] [place], [address] Sodium [Moles/Vol] 129 mmol/L Low 133-145 [facility] Comment on above: Performed By: #### L 500.2500, L100.0100 #### [facility] [address] [place], [address] Urea nitrogen [Mass/Vol] 18 mg/dL Normal 4-19 [facility] Comment on above: Performed By: #### L 500.2500, L100.0100 #### [facility] [address] [place], [address] CBC W/Diff, Automatedon 11-0 4-5 Absolute Lymph 1.69 X10 3/uL Normal 0.83-4.51 [facility] Comment on above: Performed By: #### L 500.2500, L100.0100 #### [facility] [address] [place], [address] Absolute Neut 13.1 X10 3/uL High 2.0-7.7 [facility] Comment on above: Performed By: #### L 500.2500, L100.0100 #### [facility] [address] [place], [address] Basophils/100 WBC (Bld) 0.3 % Normal 0-1 [facility] Comment on above: Performed By: #### L 500.2500, L100.0100 #### [facility] [address] [place], [address] Eosinophils/100 WBC (Bld) 1.8 % Normal 0-5 [facility] Comment on above: Performed By: #### L 500.2500, L100.0100 #### [facility] [address] [place], [address] Erythrocyte distribution width (RBC) [Ratio] 13.8 % Normal 11.6-14.6 [facility] Comment on above: Performed By: #### L 500.2500, L100.0100 #### [facility] [address] [place], [address] Hematocrit (Bld) [Volume fraction] 33.7 % Low 37-47 [facility] Comment on above: Performed By: #### L 500.2500, L100.0100 #### [facility] [address] [place], [address] Hemoglobin (Bld) [Mass/Vol] 11.0 g/dL Low 12.0-15.0 [facility] Comment on above: Performed By: #### L 500.2500, L100.0100 #### [facility] [address] [place], [address] IG% 0.600 Normal 0.0-0.9 [facility] Comment on above: Result Comment: IG% - Immature Granulocytes (promyelocytes, myelocytes and metamyelocytes) > 1% indicates that a LEFT SHIFT is Present. Performed By: #### L 500.2500, L100.0100 #### [facility] [address] [place] [place], [address] Lymphocytes/100 WBC (Bld) 10.4 % Low 19-41 [facility] Comment on above: Performed By: #### L 500.2500, L100.0100 #### [facility] [address] [place] [place], [address] MCH (RBC) [Entitic mass] 28.9 pg Normal 27.0-32.0 [facility] Comment on above: Performed By: #### L 500.2500, L100.0100 #### [facility] [address] [place], [address] MCHC (RBC) [Mass/Vol] 32.6 g/dL Normal 32-36 [facility] Comment on above: Performed By: #### L 500.2500, L100.0100 #### [facility] [address] [place], [address] MCV (RBC) [Entitic vol] 88.7 fL Normal 81-99 [facility] Comment on above: Performed By: #### L 500.2500, L100.0100 #### [facility] [address] [place], [address] Monocytes/100 WBC (Bld) 6.6 % Normal 0-10 [facility] Comment on above: Performed By: #### L 500.2500, L100.0100 #### [facility] [address] [place], [address] Neutrophils/100 WBC (Bld) 80.3 % High 47-70 [facility] Comment on above: Performed By: #### L 500.2500, L100.0100 #### [facility] [address] [place], [address] Nucleated RBC (Bld) [#/Vol] 0 10*3/uL Normal 0-5 [facility] Comment on above: Performed By: #### L 500.2500, L100.0100 #### [facility] [address] [place], [address] Platelet mean volume (Bld) [Entitic vol] 10.7 fL Normal 6.2-12.0 [facility] Comment on above: Performed By: #### L 500.2500, L100.0100 #### [facility] [address] [place], [address] Platelets (Bld) [#/Vol] 202 10*3/uL Normal 150-450 [facility] Comment on above: Performed By: #### L 500.2500, L100.0100 #### [facility] [address] [place], [address] RBC (Bld) [#/Vol] 3.80 10*6/uL Low 4.2-5.4 [facility] Comment on above: Performed By: #### L 500.2500, L100.0100 #### [facility] [address] [place], [address] RDW SD 44.8 fl High 35.1-43.9 [facility] Comment on above: Performed By: #### L 500.2500, L100.0100 #### [facility] [address] [place], [address] WBC (Bld) [#/Vol] 16.3 10*3/uL High 4.4-11.0 [facility] Comment on above: Performed By: #### L 500.2500, L100.0100 #### [facility] [address] [place], [address] CBC W/Diff, Automatedon 11-0 3-2025 Absolute Lymph 1.10 X10 3/uL Normal 0.83-4.51 [facility] Comment on above: Performed By: #### L 100.0100, L500.4050 #### [facility] [address] [place], [address] Absolute Neut 9.7 X10 3/uL High 2.0-7.7 [facility] Comment on above: Performed By: #### L 100.0100, L500.4050 #### [facility] [address] [place], [address] Basophils/100 WBC (Bld) 0.3 % Normal 0-1 [facility] Comment on above: Performed By: #### L 100.0100, L500.4050 #### [facility] [address] [place], [address] Eosinophils/100 WBC (Bld) 1.9 % Normal 0-5 [facility] Comment on above: Performed By: #### L 100.0100, L500.4050 #### [facility] [address] [place], [address] Erythrocyte distribution width (RBC) [Ratio] 14.1 % Normal 11.6-14.6 [facility] Comment on above: Performed By: #### L 100.0100, L500.4050 #### [facility] [address] [place], [address] Hematocrit (Bld) [Volume fraction] 30.0 % Low 37-47 [facility] Comment on above: Performed By: #### L 100.0100, L500.4050 #### [facility] [address] [place], [address] Hemoglobin (Bld) [Mass/Vol] 9.8 g/dL Low 12.0-15.0 [facility] Comment on above: Performed By: #### L 100.0100, L500.4050 #### [facility] [address] [place], [address] IG% 0.400 Normal 0.0-0.9 [facility] Comment on above: Result Comment: IG% - Immature Granulocytes (promyelocytes, myelocytes and metamyelocytes) > 1% indicates that a LEFT SHIFT is Present. Performed By: #### L 100.0100, L500.4050 #### [facility] [address] [place], [address] Lymphocytes/100 WBC (Bld) 9.5 % Low 19-41 [facility] Comment on above: Performed By: #### L 100.0100, L500.4050 #### [facility] [address] [place], [address] MCH (RBC) [Entitic mass] 29.2 pg Normal 27.0-32.0 [facility] Comment on above: Performed By: #### L 100.0100, L500.4050 #### [facility] [address] [place], [address] MCHC (RBC) [Mass/Vol] 32.7 g/dL Normal 32-36 [facility] Comment on above: Performed By: #### L 100.0100, L500.4050 #### [facility] [address] [place], [address] MCV (RBC) [Entitic vol] 89.3 fL Normal 81-99 [facility] Comment on above: Performed By: #### L 100.0100, L500.4050 #### [facility] [address] [place], [address] Monocytes/100 WBC (Bld) 4.6 % Normal 0-10 [facility] Comment on above: Performed By: #### L 100.0100, L500.4050 #### [facility] [address] [place], [address] Neutrophils/100 WBC (Bld) 83.3 % High 47-70 [facility] Comment on above: Performed By: #### L 100.0100, L500.4050 #### [facility] [address] [place], [address] Nucleated RBC (Bld) [#/Vol] 0 10*3/uL Normal 0-5 [facility] Comment on above: Performed By: #### L 100.0100, L500.4050 #### [facility] [address] [place], [address] Platelet mean volume (Bld) [Entitic vol] 10.4 fL Normal 6.2-12.0 [facility] Comment on above: Performed By: #### L 100.0100, L500.4050 #### [facility] [address] [place], [address] Platelets (Bld) [#/Vol] 199 10*3/uL Normal 150-450 [facility] Comment on above: Performed By: #### L 100.0100, L500.4050 #### [facility] [address] [place], [address] RBC (Bld) [#/Vol] 3.36 10*6/uL Low 4.2-5.4 [facility] Comment on above: Performed By: #### L 100.0100, L500.4050 #### [facility] [address] [place], [address] RDW SD 45.7 fl High 35.1-43.9 [facility] Comment on above: Performed By: #### L 100.0100, L500.4050 #### [facility] [address] [place], [address] WBC (Bld) [#/Vol] 11.6 10*3/uL High 4.4-11.0 [facility] Comment on above: Performed By: #### L 100.0100, L500.4050 #### [facility] [address] [place], [address] Comprehensive Metabolic Prof aron 01-04-2025 Albumin [Mass/Vol] 3.3 g/dL Low 3.4-4.8 [facility] Comment on above: Performed By: #### L 100.0100, L500.4050 #### [facility] [address] [place], [address] Albumin/Globulin [Mass ratio] 1.3 {ratio} Normal 0.9-2.4 [facility] Comment on above: Performed By: #### L 100.0100, L500.4050 #### [facility] [address] [place], [address] ALK PHOS 61 U/L Normal 35-104 [facility] Comment on above: Performed By: #### L 100.0100, L500.4050 #### [facility] [address] [place], [address] ALT [Catalytic activity/Vol] 15 U/L Normal <=34 [facility] Comment on above: Performed By: #### L 100.0100, L500.4050 #### [facility] [address] [place], [address] AST [Catalytic activity/Vol] 51 U/L High <=31 [facility] Comment on above: Result Comment: Hemo lysis present, Results??could be affected. ?? Performed By: #### L 100.0100, L500.4050 #### [facility] [address] [place], [address] Bilirubin [Mass/Vol] 0.63 mg/dL Normal 0.00-1.30 [facility] Comment on above: Performed By: #### L 100.0100, L500.4050 #### [facility] [address] [place], [address] BUN/CRE 27.1 RATIO High 10-20 [facility] Comment on above: Performed By: #### L 100.0100, L500.4050 #### [facility] [address] [place], [address] Calcium [Mass/Vol] 8.0 mg/dL Normal 7.6-11.0 [facility] Comment on above: Performed By: #### L 100.0100, L500.4050 #### [facility] [address] [place], [address] Chloride [Moles/Vol] 101 mmol/L Normal 98-108 [facility] Comment on above: Performed By: #### L 100.0100, L500.4050 #### [facility] [address] [place], [address] CO2 [Moles/Vol] 22.1 mmol/L Normal 21.0-32.0 [facility] Comment on above: Performed By: #### L 100.0100, L500.4050 #### [facility] [address] [place], [address] Creatinine [Mass/Vol] 0.63 mg/dL Low 0.70-1.20 [facility] Comment on above: Performed By: #### L 100.0100, L500.4050 #### [facility] [address] [place], [address] ECRCL 65.00 ml/min Normal 50-250 [facility] Comment on above: Performed By: #### L 100.0100, L500.4050 #### [facility] [address] [place], [address] GAP 9 Normal 5-15 [facility] Comment on above: Performed By: #### L 100.0100, L500.4050 #### [facility] [address] [place], [address] GFR/1.73 sq M.predicted among non-blacks MDRD (S/P/Bld) [Vol rate/Area] 93 mL/min/{1.73_m2} Normal >60 [facility] Comment on above: Result Comment: mL/m in/1.73m2 CKD-EPI Creatinine Equation (2020) Performed By: #### L 100.0100, L500.4050 #### [facility] [address] [place], [address] Globulin (S) [Mass/Vol] 2.5 g/dL Normal 2.2-4.2 [facility] Comment on above: Performed By: #### L 100.0100, L500.4050 #### [facility] [address] [place], [address] Glucose [Mass/Vol] 103 mg/dL High 70-99 [facility] Comment on above: Performed By: #### L 100.0100, L500.4050 #### [facility] [address] [place], [address] Potassium [Moles/Vol] 4.2 mmol/L Normal 3.3-5.1 [facility] Comment on above: Result Comment: Hemo lysis present, Results??could be affected. ?? Performed By: #### L 100.0100, L500.4050 #### [facility] [address] [place], [address] Sodium [Moles/Vol] 132 mmol/L Low 133-145 [facility] Comment on above: Performed By: #### L 100.0100, L500.4050 #### [facility] [address] [place], [address] T PROT 5.7 g/dL Low 5.9-8.4 [facility] Comment on above: Performed By: #### L 100.0100, L500.4050 #### [facility] [address] [place], [address] Urea nitrogen [Mass/Vol] 17 mg/dL Normal 4-19 [facility] Comment on above: Performed By: #### L 100.0100, L500.4050 #### [facility] [address] [place], [address] 12 Lead EKGon 01-03-2025 12 Lead EKG [facility] [address] [address] 12 Lead EKG 01/03/25 0437 MR#: [id number] Acct: [id number] Name: SHERON OSBORN Rep #: [id number] : 1950 74 From: Mateusz Hernandez MD Attending Dr: Dr. Lolly Lin MD Status: ADM IN Ordering Dr: Matt Garcia DO Date: 01/03/25 Location: PCU Sex: F C Admitted: 01/03/25 Test Reason : DYSRYTHMIA Blood Pressure : */* mmHG Vent. Rate : 77 BPM Atrial Rate : 77 BPM P-R Int : 134 ms QRS Dur : 88 ms QT Int : 360 ms P-R-T Axes : 55 -4 20 degrees QTcB Int : 407 ms Normal sinus rhythm Inferior infarct , age undetermined Abnormal ECG Confirmed by Mateusz Hernandez ([id number]), tape editor BALTA JEAN-BAPTISTE ([id number]) on 01/04/2025 1:12:57 PM Referred By: Confirmed By: Mateusz Hernandez 01/04/25 1313 Date Mateusz Hernandez MD CC: AGATHA LEYVA; Dr. Lolly Lin MD; Matt Garcia DO Signed Normal [facility] Basic Metabolic Profile (BMP )on 01-03-2025 BUN/CRE 29.5 RATIO High 10-20 [facility] Comment on above: Performed By: #### L 500.2500, L100.0100 #### [facility] [address] [place], [address] Calcium [Mass/Vol] 8.9 mg/dL Normal 7.6-11.0 [facility] Comment on above: Performed By: #### L 500.2500, L100.0100 #### [facility] [address] [place], [address] Chloride [Moles/Vol] 103 mmol/L Normal 98-108 [facility] Comment on above: Performed By: #### L 500.2500, L100.0100 #### [facility] [address] [place], [address] CO2 [Moles/Vol] 25.4 mmol/L Normal 21.0-32.0 [facility] Comment on above: Performed By: #### L 500.2500, L100.0100 #### [facility] [address] [place], [address] Creatinine [Mass/Vol] 0.65 mg/dL Low 0.70-1.20 [facility] Comment on above: Performed By: #### L 500.2500, L100.0100 #### [facility] [address] [place], [address] ECRCL 68.06 ml/min Normal 50-250 [facility] Comment on above: Performed By: #### L 500.2500, L100.0100 #### [facility] [address] [place], [address] GAP 11 Normal 5-15 [facility] Comment on above: Performed By: #### L 500.2500, L100.0100 #### [facility] [address] [place], [address] GFR/1.73 sq M.predicted among non-blacks MDRD (S/P/Bld) [Vol rate/Area] 92 mL/min/{1.73_m2} Normal >60 [facility] Comment on above: Result Comment: mL/m in/1.73m2 CKD-EPI Creatinine Equation (2020) Performed By: #### L 500.2500, L100.0100 #### [facility] [address] [place], [address] Glucose [Mass/Vol] 116 mg/dL High 70-99 [facility] Comment on above: Performed By: #### L 500.2500, L100.0100 #### [facility] [address] [place], [address] Potassium [Moles/Vol] 4.0 mmol/L Normal 3.3-5.1 [facility] Comment on above: Performed By: #### L 500.2500, L100.0100 #### [facility] [address] [place], [address] Sodium [Moles/Vol] 139 mmol/L Normal 133-145 [facility] Comment on above: Performed By: #### L 500.2500, L100.0100 #### [facility] [address] [place], [address] Urea nitrogen [Mass/Vol] 19 mg/dL Normal 4-19 [facility] Comment on above: Performed By: #### L 500.2500, L100.0100 #### [facility] [address] [place], [address] CBC W/Diff, Automatedon 11-0 2-2024 Absolute Lymph 1.77 X10 3/uL Normal 0.83-4.51 [facility] Comment on above: Performed By: #### L 500.2500, L100.0100 #### [facility] [address] [place], [address] Absolute Neut 9.4 X10 3/uL High 2.0-7.7 [facility] Comment on above: Performed By: #### L 500.2500, L100.0100 #### [facility] [address] [place], [address] Basophils/100 WBC (Bld) 0.3 % Normal 0-1 [facility] Comment on above: Performed By: #### L 500.2500, L100.0100 #### [facility] [address] [place], [address] Eosinophils/100 WBC (Bld) 0.8 % Normal 0-5 [facility] Comment on above: Performed By: #### L 500.2500, L100.0100 #### [facility] [address] [place], [address] Erythrocyte distribution width (RBC) [Ratio] 13.8 % Normal 11.6-14.6 [facility] Comment on above: Performed By: #### L 500.2500, L100.0100 #### [facility] [address] [place], [address] Hematocrit (Bld) [Volume fraction] 34.8 % Low 37-47 [facility] Comment on above: Performed By: #### L 500.2500, L100.0100 #### [facility] [address] [place], [address] Hemoglobin (Bld) [Mass/Vol] 11.3 g/dL Low 12.0-15.0 [facility] Comment on above: Performed By: #### L 500.2500, L100.0100 #### [facility] [address] [place], [address] IG% 0.700 Normal 0.0-0.9 [facility] Comment on above: Result Comment: IG% - Immature Granulocytes (promyelocytes, myelocytes and metamyelocytes) > 1% indicates that a LEFT SHIFT is Present. Performed By: #### L 500.2500, L100.0100 #### [facility] [address] [place], [address] Lymphocytes/100 WBC (Bld) 14.9 % Low 19-41 [facility] Comment on above: Performed By: #### L 500.2500, L100.0100 #### [facility] [address] [place], [address] MCH (RBC) [Entitic mass] 28.4 pg Normal 27.0-32.0 [facility] Comment on above: Performed By: #### L 500.2500, L100.0100 #### [facility] [address] [place], [address] MCHC (RBC) [Mass/Vol] 32.5 g/dL Normal 32-36 [facility] Comment on above: Performed By: #### L 500.2500, L100.0100 #### [facility] [address] [place], [address] MCV (RBC) [Entitic vol] 87.4 fL Normal 81-99 [facility] Comment on above: Performed By: #### L 500.2500, L100.0100 #### [facility] [address] [place], [address] Monocytes/100 WBC (Bld) 3.7 % Normal 0-10 [facility] Comment on above: Performed By: #### L 500.2500, L100.0100 #### [facility] [address] [place], [address] Neutrophils/100 WBC (Bld) 79.6 % High 47-70 [facility] Comment on above: Performed By: #### L 500.2500, L100.0100 #### [facility] [address] [place], [address] Nucleated RBC (Bld) [#/Vol] 0 10*3/uL Normal 0-5 [facility] Comment on above: Performed By: #### L 500.2500, L100.0100 #### [facility] [address] [place], [address] Platelet mean volume (Bld) [Entitic vol] 10.2 fL Normal 6.2-12.0 [facility] Comment on above: Performed By: #### L 500.2500, L100.0100 #### [facility] [address] [place], [address] Platelets (Bld) [#/Vol] 260 10*3/uL Normal 150-450 [facility] Comment on above: Performed By: #### L 500.2500, L100.0100 #### [facility] [address] [place], [address] RBC (Bld) [#/Vol] 3.98 10*6/uL Low 4.2-5.4 [facility] Comment on above: Performed By: #### L 500.2500, L100.0100 #### [facility] [address] [place], [address] RDW SD 44.8 fl High 35.1-43.9 [facility] Comment on above: Performed By: #### L 500.2500, L100.0100 #### [facility] [address] [place], [address] WBC (Bld) [#/Vol] 11.8 10*3/uL High 4.4-11.0 [facility] Comment on above: Performed By: #### L 500.2500, L100.0100 #### [facility] [address] [place], [address] Chest 1 View (Portable)on Chest 1 View (Portable) [facility] Imaging Services [address] [place] [address] Chest 1 View (Portable) MR#: [id number] Acct: [id number] Name: SHERON OSBORN Rep #: [id number] : 1950 F 74 From: Gabe Honeycutt MD PCP: AGATHA DAVIS Status: REG ER Study: Chest 1 View (Portable) Date of Exam: 01/03/25 Exam# [id number] Ordering Dr: Matt Garcia DO PROCEDURE: CHEST 1 VIEW (PORTABLE) 01/03/2025 REASON FOR EXAM: PREOP CLEARANCE TECHNIQUE: Frontal view of the chest. COMPARISON: None. FINDINGS: Lungs/Pleura: Clear. Heart/Mediastinum: Borderline enlarged. Bones/Soft tissues: Degenerative changes of the spine and bilateral shoulders. RAD/Chest 1 View (Portable) IMPRESSION: No acute pulmonary disease. Reading Location: [id number] CC: WIRE TECHNICIAN-C ANN LEYVA; Matt Garcia DO Bellhop Captain: Signed Normal [facility] Emergency Department Summary on 01-03-2025 Emergency Department Summary [facility] Medical Records Department [address] [place] [address] Emergency Department Summary 01/03/25 MR#: [id number] Acct: [id number] Name: SHERON OSBORN Rep #: [id number] : 1950 74 From: Matt Garcia DO PCP: AGATHA DAVIS Status:REG ER Location: ED HPI History of Present Illness Chief Complaint: Fall Informant: patient, family and EMS Narrative Narrative: Patient is a 74-year-old female who reports a past medical history of GERD/gastric ulcer for which she takes omeprazole. Otherwise she denies any significant past medical history. She states that this morning around 230 or 3 AM she was up letting her dog out. She states she let the dog back in and then she was standing on her right foot pulling up the sock on her left leg. She states as she was balancing on 1 foot she lost her balance and fell landing on the left hip/leg. She reports instant pain along the left hip and states she could not stand and ambulate after the fall secondary to pain. She denies striking her head or any loss of consciousness. She denies any history of bleeding disorder or blood thinner use. She denies any other injury. She reports that her brother was also up and was able to contact EMS. With concern for potential fracture she was brought to the ER for evaluation. [facility] Medical History (Updated 01/03/25 @ 05:[address] Matt Garcia DO) Chronic anemia CKD (chronic kidney disease), stage II Hx of gastric ulcer GERD (gastroesophageal reflux disease) Home Medications ???Medication ???Instructions ???Recorded ???Last Taken ???Type omeprazole 40 mg capsule,delayed 20 mg PO DAILY 01/03/25 Unknown Hi story release Allergy/AdvReac Type Severity Reaction Status Date / Time carbamazepine (From Tegretol) Allergy Other Verified 01/03/25 03:45 Family History (Updated 01/03/25 @ 04:[address] Kailyn Rizvi MD) Mother Heart disease Father Prostate cancer Surgical History Hx of bilateral cataract extraction Hx of appendectomy History of bladder surgery Social History (Updated 01/03/25 @ 04:[address] Kailyn Rizvi MD) household members: none Smoking Status: Never smoker alcohol intake: never substance use type: does not use ROS ROS ED Constitutional Constitutional ED: Denies chills or fever(s) Eyes Eyes: Denies blurry vision or change in vision ENT ENT ED: Denies sore throat Cardiovascular Cardiovascular: Reports other Details: Negative syncope ; Denies chest pain, palpitations or racing heartbeat Respiratory/Chest Respiratory/Chest: Denies cough or dyspnea Gastrointestinal Gastrointestinal: Denies abdominal pain, diarrhea, nausea or vomiting Genitourinary Genitourinary ED: Denies dysuria Musculoskeletal Musculoskeletal: Reports other Details: Positive left hip/thigh pain ; Denies back pain or neck pain Integumentary Denies Abrasions or rash Neurologic Neurologic: Denies headache(s), paresthesias or weakness Hematologic/Lymphati c Hematologic/Lymphati c: Denies easy bleeding or easy bruising EXAM Physical Exam Const Vital Signs: 01/03/25 03:45 01/03/25 03:48 01/03/25 04:20 Temperature 98.0 F Temperature Source Oral Pulse Rate 88 Respiratory Rate 16 Respiratory Effort Normal Non-Labored Respiratory Depth Normal Respiratory Pattern Normal Blood Pressure 148/73 H Blood Pressure Mean 98 Pulse Ox 94 95 80 Oxygen Delivery Method Room Air Room Air Room Air Oxygen Flow Rate (L/min) 01/03/25 04:30 01/03/25 05:00 Temperature Temperature Source Pulse Rate 75 Respiratory Rate 16 Respiratory Effort Respiratory Depth Respiratory Pattern Blood Pressure 100/62 Blood Pressure Mean 74 Pulse Ox 93 96 Oxygen Delivery Method Nasal Cannula Nasal Cannula Oxygen Flow Rate (L/min) 2 2 Positive well nourished and well developed General Appearance ED: well developed; Negative for pallor HEENT HEENT Narrative: Normocephalic atraumatic No signs of depressed or basilar skull fracture Eyes PERRL and EOMs intact bilaterally General Eye ED: Negative for scleral icterus Neck supple Neck Narrative: No bony deformity or step-off of the cervical spine no midline tenderness to palpation Chest Wall palpation of chest normal Chest Narrative: No bony deformity or subcutaneous emphysema noted Resp normal respiratory effort and clear to auscultation bilaterally Cardio regular rate and regular rhythm Rate: other Other Details: Radial and carotid pulses are equal and symmetric GI normal to inspection, nondistended, normoactive bowel sounds, non-tender, non-distended and no masses GI Narrative: No voluntary guarding or rigidity or pulsatile mass Auscultatio (more content not included)... Normal [facility] H AND P Exam - Hospitaliston 01-03-2025 H&P Exam - Hospitalist [facility] Medical Records Department [address] [place] [address] H P Exam - Hospitalist 01/03/25 0422 MR#: [id number] Acct: [id number] Name: SHERON OSBORN Rep #: [id number] : 1950 74 From: Kailyn Rizvi MD PCP: AGATHA DAVIS Status:REG ER Location: ED HPI - General General Date of Admission: 01/03/25 Date of Service: 01/03/25 Chief Complaint: Fall, L hip pain. HPI Narrative The patient is a 78 y/o F w/ PMHx: Obesity, GERD w/ Hx gastric ulcer who presents to the [facility] ED on 01/03/25 with history of unfortunately mechanical fall while taking her dog out, tripping landing on her left hip with significant tenderness 10 severe sharp pain and debility with inability to bear weight prompting ED evaluation. In the ED upon evaluation she currently is rating her pain 9 out of 10 in severity and sharp in nature. She denies any paresthesias. Workup in the ED included T98, heart rate 88, BP 148/73, respiratory rate 16, 94% on room air, CBC with WC 11.8, Hgb 11.3, MCV 87.4, platelet 260 with left shift, unremarkable coags, BMP with BUN/creatinine 19/0.65, GFR 92, glucose 116, urinalysis unremarkable, plain film of the left hip and pelvis nondisplaced impacted fracture of the left femoral neck with moderate bilateral hip arthrosis, chest x-ray with no acute cardiopulmonary findings, plain film of the left knee/tib-fib region with no acute osseous finding, EKG pending upon evaluation patient. In the ED patient administered morphine 4 mg IV x 1 as well as Zofran 4 mg IV x 1. ED discussed case with orthopedic surgeon Dr. Cao. [facility] Medical History (Updated 01/03/25 @ 05:[address] Kailyn Rizvi MD) Chronic anemia CKD (chronic kidney disease), stage II Hx of gastric ulcer GERD (gastroesophageal reflux disease) Home Medications ???Medication ???Instructions ???Recorded ???Last Taken ???Type omeprazole 40 mg capsule,delayed 20 mg PO DAILY 01/03/25 Unknown Hi story release Allergy/AdvReac Type Severity Reaction Status Date / Time carbamazepine (From Tegretol) Allergy Other Verified 01/03/25 03:45 Family History (Updated 01/03/25 @ 04:[address] Kailyn Rizvi MD) Mother Heart disease Father Prostate cancer Surgical History Hx of bilateral cataract extraction Hx of appendectomy History of bladder surgery Social History (Updated 01/03/25 @ 04:[address] Kailyn Rizvi MD) household members: none Smoking Status: Never smoker alcohol intake: never substance use type: does not use ROS ROS Narrative Admission Review of Systems: CONSTITUTIONAL: No weight loss, fever, chills, = weakness or fatigue. HEENT: Eyes: No visual loss, blurred vision, double vision or yellow sclerae. Ears, Nose, Throat: No hearing loss, sneezing, congestion, runny nose or sore throat. SKIN: No rash or itching, lesions, wounds. CARDIOVASCULAR: No chest pain, chest pressure or chest discomfort, palpitations, edema, orthopnea, syncopal events. RESPIRATORY: No shortness of breath, cough or sputum, wheezing, hemoptysis. GASTROINTESTINAL: No anorexia, nausea, vomiting or diarrhea, abdominal pain, melena, BRBPR. GENITOURINARY: No dysuria, frequency, urgency or retention. NEUROLOGICAL: No headache, dizziness, syncope, paralysis, ataxia, numbness or tingling in the extremities, focal weakness, change in bowel or bladder control, seizure. MUSCULOSKELETAL: + muscle, back pain, joint pain or stiffness. HEMATOLOGIC: + Appearance of chronic anemia, no marked easy bleeding or bruising. LYMPHATICS: No enlarged nodes. No history of splenectomy. PSYCHIATRIC: No history of depression or anxiety. ENDOCRINOLOGIC: No reports of sweating, cold or heat intolerance. No polyuria or polydipsia. ALLERGIES: No history of asthma, hives, eczema or rhinitis. Vital Signs Vital Signs Vital Signs: 01/03/25 03:45 01/03/25 03:48 Temperature 98.0 F Temperature Source Oral Pulse Rate 88 Respiratory Rate 16 Respiratory Effort Normal Non-Labored Respiratory Depth Normal Respiratory Pattern Normal Blood Pressure 148/73 H Blood Pressure Mean 98 Pulse Ox 94 95 Oxygen Delivery Method Room Air Room Air Weight Weight: 187 lb 6.287 oz Body Mass Index (BMI) 29.3 Physical Exam Narrative Physical Examination: General: Awake, alert, oriented x 3 and cooperative, laying in the bed, reports persistent left hip pain rating it 9 out of 10. Skin: Normal color, normal turgor, no icterus, no cyanosis except occasional stage ecchymoses, abrasion. HEENT: AT/NC, EOMI, PERRLA, mildly dry MM, no carotid bruits or JVD noted. Lungs: CTA bilaterally, moderate effort, mild decrease BL bases, no rales, ronchi or wheezing. Heart: Regular rate and rhythm; no gallop, rub audible. Abdomen: Soft, obe (more content not included)... Normal [facility] HIP, UNI W/ Pelvis 2-3 Views on 01-03-2025 HIP, UNI W/ Pelvis 2-3 Views [facility] Imaging Services [address] [place], [place] [address] HIP, UNI W/ Pelvis 2-3 Views MR#: [id number] Acct: [id number] Name: SHERON OSBORN Rep #: [id number] : 1950 F 74 From: Gabe Honeycutt MD PCP: AGATHA DAVIS Status: REG ER Study: HIP, UNI W/ Pelvis 2-3 Views Date of Exam: 04/28 Exam# [id number] Ordering Dr: Matt Garcia DO PROCEDURE: LEFT HIP, UNI W/ PELVIS 2-3 VIEWS 01/03/2025 REASON FOR EXAM: PAIN TECHNIQUE: Procedure Code: RAD Modality: DX Procedure: HIP, UNI W/ PELVIS 2-3 VIEWS COMPARISON: None. FINDINGS: There appears to be a nondisplaced impacted fracture of the left femoral neck. Intact bilateral hip joints, with moderate arthrosis bilaterally. Grossly unremarkable soft tissues. RAD/HIP, UNI W/ Pelvis 2-3 Views IMPRESSION: Nondisplaced impacted fracture of the left femoral neck. Moderate bilateral hip arthrosis. Reading Location: [id number] CC: WIRE TECHNICIAN-C ANN LEYVA; Matt Garcia DO Bellhop Captain: Signed Normal [facility] Hip Min 2 Views (Portable)on 01-03-2025 Hip Min 2 Views (Portable) [facility] Imaging Services [address] [place] [address] Hip Min 2 Views (Portable) MR#: [id number] Acct: [id number] Name: SHERON OSBORN Rep #: [id number] : 1950 F 74 From: Michael Velasquez MD PCP: AGATHA DAVIS Status: ADM IN Study: Hip Min 2 Views (Portable) Date of Exam: 01/03 Exam# [id number] Ordering Dr: Joseph Cao DO PROCEDURE: HIP MIN 2 VIEWS (PORTABLE) 01/03/2025 REASON FOR EXAM: POST OP TECHNIQUE: Procedure Code: RADH_P Modality: DX Procedure: HIP MIN 2 VIEWS (PORTABLE) COMPARISON: Reviewed FINDINGS: Suggestion of a subcapital right hip fracture with mild posterolateral displacement. Intact total left hip arthroplasty. Consider CT for confirmation as deemed clinically necessary. RAD/Hip Min 2 Views (Portable) IMPRESSION: As above. Reading Location: [facility] CC: AGATHA LEYVA; Dr. Joseph Cao DO Bellhop Captain: Signed Normal [facility] Knee 1 or 2 Viewson 01-04-20 Knee 1 or 2 Views [facility] Imaging Services [address] [place] [address] Knee 1 or 2 Views MR#: [id number] Acct: [id number] Name: SHERON OSBORN Rep #: [id number] : 1950 F 74 From: Gabe Honeycutt MD PCP: AGATHA DAVIS Status: REG ER Study: Knee 1 or 2 Views Date of Exam: 01/03/25 Exam# [id number] Ordering Dr: Matt Garcia DO PROCEDURE: LEFT KNEE 1 OR 2 VIEWS 01/03/2025 REASON FOR EXAM: PAIN TECHNIQUE: Procedure Code: RADK Modality: DX Procedure: KNEE 1 OR 2 VIEWS Laterality: Left COMPARISON: None. FINDINGS: No acute fracture or dislocation. Alignment is anatomic. Mild-moderate tricompartmental degenerative arthrosis, with marginal osteophytosis. Small nonspecific suprapatellar joint effusion. No marked soft tissue swelling appreciated. RAD/Knee 1 or 2 Views IMPRESSION: No acute fracture or dislocation. 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 Reading Location: [id number] CC: WIRE TECHNICIAN-C ANN LEYVA; Matt Garcia DO Bellhop Captain: Signed Ish [facility] MR/POSTOP.Pravin 01-03-2025 MR/POSTOP.[facility] Medical Records Department [address] [place] [address] Anesthesia Postop Eval I 01/03/25 1318 MR#: [id number] Acct: [id number] Name: OSBORNSHERON Rep #: [id number] : 1950 74 From: Lee Benjamin MD PCP: AGATHA DAVIS Status:ADM IN Y Race: C Location: [place] [address] Anesthesia: Postop Eval I Current Vital Signs Temperature: 97.3 F Pulse Rate: 84 Blood Pressure: 122/65 Respiratory Rate: 16 Pulse Ox: 94 Oxygen Delivery Method: Nasal Cannula Oxygen Flow Rate (L/min): 2 Assessment Airway patent: Yes Spontaneous unlabored respirations: Yes Mental status: Awake nausea: No Vomiting: No Anesthesia Complication: No Fluid Hydration Crystalloid volume administer (ml): 1,200 Total IV fluid infused: 1,200 Progress Note Anesthesia document: Postop Eval 1 completed: Yes 01/03/25 1319 Date Lee Benjamin MD Cosigner Signature: Date CC: Signed Normal [facility] [id number] 01-03-2025 MR/POSTOPAN2 [facility] Medical Records Department [address] [place] [address] Anesthesia Postop Eval II 01/03/25 1320 MR#: [id number] Acct: [id number] Name: SHERON OSBORN Rep #: [id number] : 1950 74 From: Lee Benjamin MD PCP: AGATHA DAVIS Status:ADM IN Y Race: C Location: [place] [address] Anesthesia Postop Eval I Sum Postop Eval Completion status Anesthesia document: Postop Eval 1 completed: Yes Anesthesia Postop Eval I Summary Anesthesia Postop Eval I Summary: Anesthesia Postop Eval I: Assessment Summary Airway patent Yes 01/03/25 13:19 Spontaneous unlabored Yes 01/03/25 13:19 respirations Mental status Awake 01/03/25 13:19 nausea No 01/03/25 13:19 Vomiting No 01/03/25 13:19 Anesthesia Postop Eval I: Fluid Summary Crystalloid volume administer 1,200 01/03/25 13:19 (ml) Colloids volume administered ( ml) Blood Product volume administered (ml) Total IV fluid infused 1,200 01/03/25 13:19 Anesthesia Postop Eval I: Summary Notes Anesthesia Complication No 01/03/25 13:19 Anesthesia Complication Comment: Post-operative progress note Anesthesia: Postop Eval II Evaluation Mental status: Awake Pain Level: 1 nausea: No Vomiting: No 01/03/25 1320 Date Lee Benjamin MD Cosigner Signature: Date CC: Signed Normal [facility] Operative Reporton 5 Operative Report [facility] Medical Records Department [address] [place] [address] Operative Report 01/03/25 1310 MR#: [id number] Acct: [id number] Name: SHERON OSBORN Rep #: [id number] : 1950 74 From: Joseph Cao DO PCP: AGATHA DAVIS Status:ADM IN [id number] Report (Standard) Operative Information Date of Procedure: 01/03/25 Pre-Operative Diagnosis: Left femoral neck fracture Post-Operative Diagnosis: Same Surgery/Procedure Performed: Left hip hemiarthroplasty drop board worker: Yes Boring Mill Operator For Metal: Nisreen Hagan Tasks completed by driller's assistant: Opening closing Type of Anesthesia: Spinal RN Documented Start/Stop Times: Operation Date: 01/03/25 11:20 Procedure Start Time: 11:20 Procedure Stop Time: 13:00 Select all DRAINS/GRAFTS/IMPLAN TS that apply: Prosthetic device Prosthetic device details: Guin Estimated Blood Loss: 125 Specimen collected: Yes Description of specimen(s) removed: Femoral head Description of surgery: Preoperative diagnosis: Left hip femoral neck fracture displaced Postoperative diagnosis: Same Procedure: Left hip hemiarthroplasty Implants: Ramón Accolade II stem size 6 132 degree neck angle 0 neck length 53 mm outer diameter bipolar head Anesthesia: General l EBL: 150 cc Complications: None Condition: Stable to PACU Indication for procedure: This is a 74-year-old female patient with a ground-level fall sustaining a impacted displaced left femoral neck fracture. plans for definitive hemiarthroplasty were discussed including risks benefits and alternatives of the procedure were reviewed with the patient including risk of bleeding infection nerve artery tissue damage need for further surgery continue pain postoperative hip precaution restrictions leg length discrepancy and dislocation. Procedure: Patient was met in the preoperative holding area once again the operative extremity was identified by both patient and physician and was marked. Patient was met by anesthesia and brought to the operating room where anesthesia was started . The patient was then positioned in the lateral decubitus position on a well-padded pegboard with an axillary roll. All bony prominences were checked and padded. The patient was prepped and draped in the usual sterile fashion. A timeout was called to ensure the proper patient procedure and extremity were being contemplated. Anatomic landmarks were palpated and marked for a standard posterior lateral approach. A timeout was called to ensure the proper patient procedure and extremity were being contemplated. A 10 blade scalpel was used to make a posterior incision through the skin and subcutaneous tissue. In retractors were used and electrocautery was used to maintain meticulous hemostasis and dissect full-thickness flaps until the gluteal fascia was reached. The gluteal fascia was incised in line with the gluteal fibers. The bursal tissue was then freed from the underside and a Charnley retractor was placed. The fatpad was elevated off of the external rotators with electrocautery and the external rotators were dissected off of the greater trochanter including the piriformis and were tagged with #1 Ethibond for later repair. The joint capsule opened with posterior trapdoor technique. A femoral neck cutting guide was used to krish the neck with a Bovie and an oscillating saw was used to complete the femoral neck cut. the fracture was visualized and with the use of a corkscrew and a skid the femoral head was removed and sized. We then trialed with the matching sizes . Hohmann was placed around the lesser trochanter. A femoral elevator was used. As well as a pointed wide Hohmann around the lesser trochanter and a Hohmann to help retract the gluteus medius. A box chisel was used to remove excess lateral neck followed by a canal finder and a lateralizing reamer. This was followed by sequential broaches. Attention was made of the version within the canal. Once the final broach was seated we then trialed and reduced the hip it was determined that a 132 degree neck angle with a 0 neck length was the appropriate size. We then checked stability with shuck testing as well as flexion and interminal rotation then proceeded with hip extension and checked leg lengths at the knees and heels. At this point trials were removed. The femoral stem was inserted. We re- trialed and then proceeded to impact the femoral head onto the Shaw taper. We then surgically reduce the hip check stability again and leg lengths and were satisfied. irricept rinse was allowed to sit for 1 minutes while everyone changed their gloves. Thorough irrigation was performed. Followed by closure of the external rotators with #2 FiberWire followed by closure of gluteal fascia with #1 Ethibond. 0 Vicryl fat stitches and 2-0 Vicryl subcutaneous stitches and stap (more content not included)... Normal [facility] Partial Thromboplast Timeon 01-03-2025 aPTT Coag (Bld) [Time] 30.2 s Normal 24.1-36.2 [facility] Comment on above: Performed By: #### L 500.2500, L100.0100 #### [facility] [address] [place], [address] Prothrombin Time w/INRon INR Coag (PPP) [Relative time] 1.0 {INR} Normal [facility] Comment on above: Performed By: #### L 500.2500, L100.0100 #### [facility] [address] [place], [address] PT Coag (PPP) [Time] 13.6 s Normal 11.7-14.9 [facility] Comment on above: Performed By: #### L 500.2500, L100.0100 #### [facility] [address] [place], [address] Urinalysis, Completeon 01-03 WBC 0-5 SEEN Normal 0-5 [facility] Comment on above: Order Comment: COLLE CTOR TO SPECIFY Performed By: #### L 400.0001 #### [facility] [address] [place], [address] BACTERIA 0 SEEN Normal None Seen [facility] Comment on above: Order Comment: COLLE CTOR TO SPECIFY Performed By: #### L 400.0001 #### [facility] [address] [place], [address] EPI,SQUAMOUS 0 SEEN Normal 5-10 [facility] Comment on above: Order Comment: COLLE CTOR TO SPECIFY Performed By: #### L 400.0001 #### [facility] [address] [place], [address] Mucus Ql (Urine sed) 0 SEEN Normal [facility] Comment on above: Order Comment: EBONI CTOR TO SPECIFY Performed By: #### L 400.0001 #### [facility] [address] [place], [address] RBC 0 SEEN Normal 0-5 [facility] Comment on above: Order Comment: COLLE CTOR TO SPECIFY Performed By: #### L 400.0001 #### [facility] [address] [place], [address] .Auto Diffon 03-20-2024 Basophil, Absolute 0.0 10 3/mcL Normal 0.0-0.2 [facility] Comment on above: Performed By: #### C BC, CMP, ADIFF, ANEU, GFR, LIPID, LIP #### [address] [address] Basophils/100 WBC (Bld) 0.4 % Normal 0.0-2.5 [facility] Comment on above: Performed By: #### C BC, CMP, ADIFF, ANEU, GFR, LIPID, LIP #### [address] [address] Eosinophil, Absolute 0.1 10 3/mcL Normal 0.0-0.7 [facility] Comment on above: Performed By: #### C BC, CMP, ADIFF, ANEU, GFR, LIPID, LIP #### [address] [address] Eosinophils/100 WBC (Bld) 1.6 % Normal 0.0-7.0 [facility] Comment on above: Performed By: #### C BC, CMP, ADIFF, ANEU, GFR, LIPID, LIP #### [address] [address] Lymphocyte, Absolute 2.1 10 3/mcL Normal 0.9-4.3 [facility] Comment on above: Performed By: #### C BC, CMP, ADIFF, ANEU, GFR, LIPID, LIP #### [address] [address] Lymphocytes/100 WBC (Bld) 28.0 % Normal 20.0-40.0 [facility] Comment on above: Performed By: #### C BC, CMP, ADIFF, ANEU, GFR, LIPID, LIP #### [address] [address] Monocyte, Absolute 0.5 10 3/mcL Normal 0.1-1.4 [facility] Comment on above: Performed By: #### C BC, CMP, ADIFF, ANEU, GFR, LIPID, LIP #### [address] [address] Monocytes/100 WBC (Bld) 6.2 % Normal 2.0-13.0 [facility] Comment on above: Performed By: #### C BC, CMP, ADIFF, ANEU, GFR, LIPID, LIP #### [address] [address] Neutrophils/100 WBC (Bld) 63.8 % Normal 50.0-75.0 [facility] Comment on above: Performed By: #### C BC, CMP, ADIFF, ANEU, GFR, LIPID, LIP #### [address] [address] .GFRon 03-20-2024 GFR 104 ml/min/1.73sqm Normal [facility] Comment on above: Result Comment: GFR Population mean for , Non- Americans Ages 20-29 = 116 mL/min/1.73 sq.m. Ages 30-39 = 107 mL/min/1.73 sq.m. Ages 40-49 = 99 mL/min/1.73 sq.m. Ages 50-59 = 93 mL/min/1.73 sq.m. Ages 60-69 = 85 mL/min/1.73 sq.m. Ages 70+ = 75 mL/min/1.73 sq.m. Chronic Kidney Disease: Less than 60 mL/min/1.73 square meters End Stage Renal Disease: Less than 15 mL/min/1.73 square meters Performed By: #### C BC, CMP, ADIFF, ANEU, GFR, LIPID, LIP #### [address] [address] GFR Non- 86 ml/min/1.73sqm Normal [facility] Comment on above: Result Comment: GFR Population mean for , Non- Americans Ages 20-29 = 116 mL/min/1.73 sq.m. Ages 30-39 = 107 mL/min/1.73 sq.m. Ages 40-49 = 99 mL/min/1.73 sq.m. Ages 50-59 = 93 mL/min/1.73 sq.m. Ages 60-69 = 85 mL/min/1.73 sq.m. Ages 70+ = 75 mL/min/1.73 sq.m. Chronic Kidney Disease: Less than 60 mL/min/1.73 square meters End Stage Renal Disease: Less than 15 mL/min/1.73 square meters Performed By: #### C BC, CMP, ADIFF, ANEU, GFR, LIPID, LIP #### [address] [address] .NEUABSon 03-20-2024 Neutrophil, Absolute 4.8 10 3/mcL Normal 2.3-8.1 [facility] Comment on above: Performed By: #### C BC, CMP, ADIFF, ANEU, GFR, LIPID, LIP #### [address] [address] CBCon 03-20-2024 Erythrocyte distribution width (RBC) [Ratio] 13.8 % Normal 11.5-15.5 [facility] Comment on above: Performed By: #### C BC, CMP, ADIFF, ANEU, GFR, LIPID, LIP #### [address] [address] Hematocrit (Bld) [Volume fraction] 38.9 % Normal 34.0-46.0 [facility] Comment on above: Performed By: #### C BC, CMP, ADIFF, ANEU, GFR, LIPID, LIP #### [address] [address] Hgb 13.0 G/dL Normal 12.0-16.0 [facility] Comment on above: Performed By: #### C BC, CMP, ADIFF, ANEU, GFR, LIPID, LIP #### [address] [address] MCH (RBC) [Entitic mass] 28.8 pg Normal 27.0-33.0 [facility] Comment on above: Performed By: #### C BC, CMP, ADIFF, ANEU, GFR, LIPID, LIP #### [address] [address] MCHC 33.4 G/dL Normal 32.0-36.0 [facility] Comment on above: Performed By: #### C BC, CMP, ADIFF, ANEU, GFR, LIPID, LIP #### [place] [address] MCV (RBC) [Entitic vol] 86.2 fL Normal 80.0-99.0 [facility] Comment on above: Performed By: #### C BC, CMP, ADIFF, ANEU, GFR, LIPID, LIP #### [address] [address] Platelet 266 10 3/mcL Normal 150-450 [facility] Comment on above: Performed By: #### C BC, CMP, ADIFF, ANEU, GFR, LIPID, LIP #### [address] [address] Platelet mean volume (Bld) [Entitic vol] 8.8 fL Normal 6.6-10.5 [facility] Comment on above: Performed By: #### C BC, CMP, ADIFF, ANEU, GFR, LIPID, LIP #### [address] [address] RBC 4.51 10 6/mcL Normal 4.10-5.30 [facility] Comment on above: Performed By: #### C BC, CMP, ADIFF, ANEU, GFR, LIPID, LIP #### [address] [address] WBC 7.6 10 3/mcL Normal 4.5-10.8 [facility] Comment on above: Performed By: #### C BC, CMP, ADIFF, ANEU, GFR, LIPID, LIP #### [place] [id number] CMPon 03-20-2024 Albumin Level 3.7 G/dL Normal 3.4-4.8 [facility] Comment on above: Performed By: #### C BC, CMP, ADIFF, ANEU, GFR, LIPID, LIP #### [place] [address] Albumin/Globulin [Mass ratio] 1.0 {ratio} Low 1.1-2.5 [facility] Comment on above: Performed By: #### C BC, CMP, ADIFF, ANEU, GFR, LIPID, LIP #### [place] [address] ALP [Catalytic activity/Vol] 72 U/L Normal 40-135 [facility] Comment on above: Performed By: #### C BC, CMP, ADIFF, ANEU, GFR, LIPID, LIP #### [place] [address] ALT [Catalytic activity/Vol] 14 U/L Normal 14-59 [facility] Comment on above: Performed By: #### C BC, CMP, ADIFF, ANEU, GFR, LIPID, LIP #### [place] [address] AST [Catalytic activity/Vol] 17 U/L Normal 10-40 [facility] Comment on above: Performed By: #### C BC, CMP, ADIFF, ANEU, GFR, LIPID, LIP #### [place] [address] Bili Total 0.5 mg/dL Normal 0.2-1.0 [facility] Comment on above: Result Comment: Use of this assay is not recommended for patients undergoing treatment with eltrombopag due to the potential for falsely elevated results. Performed By: #### C BC, CMP, ADIFF, ANEU, GFR, LIPID, LIP #### [place] [address] BUN/Creatinine Ratio 21 ratio Normal 7-27 [facility] Comment on above: Performed By: #### C BC, CMP, ADIFF, ANEU, GFR, LIPID, LIP #### [address] [address] Calcium [Mass/Vol] 9.3 mg/dL Normal 8.4-10.2 [facility] Comment on above: Performed By: #### C BC, CMP, ADIFF, ANEU, GFR, LIPID, LIP #### [address] [address] Chloride [Moles/Vol] 106 mmol/L Normal 98-107 [facility] Comment on above: Performed By: #### C BC, CMP, ADIFF, ANEU, GFR, LIPID, LIP #### [address] [address] CO2 [Moles/Vol] 27 mmol/L Normal 23-31 [facility] Comment on above: Performed By: #### C BC, CMP, ADIFF, ANEU, GFR, LIPID, LIP #### [address] [address] Creatinine [Mass/Vol] 0.67 mg/dL Normal 0.55-1.02 [facility] Comment on above: Result Comment: Test ing performed on Siemens Dimension EXL analyzer using a modified kinetic Puma technique. Performed By: #### C BC, CMP, ADIFF, ANEU, GFR, LIPID, LIP #### [address] [address] Electrolyte Balance 9.0 mEq/L Normal 4.0-15.0 [facility] Comment on above: Performed By: #### C BC, CMP, ADIFF, ANEU, GFR, LIPID, LIP #### [address] [address] Globulin 3.8 G/dL Normal [facility] Comment on above: Performed By: #### C BC, CMP, ADIFF, ANEU, GFR, LIPID, LIP #### [place] [address] Glucose [Mass/Vol] 83 mg/dL Normal 83-110 [facility] Comment on above: Performed By: #### C BC, CMP, ADIFF, ANEU, GFR, LIPID, LIP #### [address] [address] Potassium [Moles/Vol] 4.0 mmol/L Normal 3.5-5.1 [facility] Comment on above: Performed By: #### C BC, CMP, ADIFF, ANEU, GFR, LIPID, LIP #### [address] [address] Sodium [Moles/Vol] 142 mmol/L Normal 136-145 [facility] Comment on above: Performed By: #### C BC, CMP, ADIFF, ANEU, GFR, LIPID, LIP #### [address] [address] Total Protein 7.5 G/dL Normal 6.4-8.2 [facility] Comment on above: Performed By: #### C BC, CMP, ADIFF, ANEU, GFR, LIPID, LIP #### [address] [address] Urea nitrogen [Mass/Vol] 14 mg/dL Normal 7-18 [facility] Comment on above: Performed By: #### C BC, CMP, ADIFF, ANEU, GFR, LIPID, LIP #### [address] [address] LABORATORYOrdered By: SYSTEM SYSTEM on 03-20-2024 Albumin BCP dye [Mass/Vol] 3.7 G/dL Normal 3.4 - 4.8 G/dL AO ADM SS Albumin/Globulin [Mass ratio] 1.0 {ratio} Low 1.1 - 2.5 ratio AO ADM SS ALP [Catalytic activity/Vol] 72 U/L Normal 40 - 135 U/L AO ADM SS ALT With P-5'-P [Catalytic activity/Vol] 14 U/L Normal 14 - 59 U/L AO ADM SS AST With P-5'-P [Catalytic activity/Vol] 17 U/L Normal 10 - 40 U/L AO ADM SS Basophils (Bld) [#/Vol] 0.0 103/mcL Normal 0.0 - 0.2 10^3/mcL AO Workflow SS Basophils/100 WBC (Bld) 0.4 % Normal 0.0 - 2.5 % AO Workflow SS Bilirubin [Mass/Vol] 0.5 mg/dL Normal 0.2 - 1 .0 mg/dL AO ADM SS Comment on above: Interpretive Data: U se of this assay is not recommended for patients undergoing treatment with eltrombopag due to the potential for falsely elevated results. Calcium [Mass/Vol] 9.3 mg/dL Normal 8.4 - 10. 2 mg/dL AO ADM SS Chloride [Moles/Vol] 106 mmol/L Normal 98 - 10 7 mmol/L AO ADM SS CO2 [Moles/Vol] 27 mmol/L Normal 23 - 31 mmol/L AO ADM SS Creatinine [Mass/Vol] 0.67 mg/dL Normal 0.55 - 1.02 mg/dL AO ADM SS Comment on above: Interpretive Data: T esting performed on Siemens Dimension EXL analyzer using a modified kinetic Puma technique. Electrolyte Balance 9.0 mEq/L Normal 4.0 - 15 .0 mEq/L AO ADM SS Eosinophil, Absolute 0.1 103/mcL Normal 0.0 - 0 .7 10^3/mcL AO Workflow SS Eosinophils/100 WBC (Bld) 1.6 % Normal 0.0 - 7.0 % AO Workflow SS Erythrocyte distribution width (RBC) [Ratio] 13.8 % Normal 11.5 - 15.5 % AO Workflow SS GFR/1.73 sq M.predicted among blacks MDRD (S/P/Bld) [Vol rate/Area] 104 ml/min/1.73sqm Invalid Interpretation Code AO Chemistry S Comment on above: Interpretive Data: GFR Population mean for , Non- Americans Ages 20-29 = 116 mL/min/1.73 sq.m. Ages 30-39 = 107 mL/min/1.73 sq.m. Ages 40-49 = 99 mL/min/1.73 sq.m. Ages 50-59 = 93 mL/min/1.73 sq.m. Ages 60-69 = 85 mL/min/1.73 sq.m. Ages 70+ = 75 mL/min/1.73 sq.m. Chronic Kidney Disease: Less than 60 mL/min/1.73 square meters End Stage Renal Disease: Less than 15 mL/min/1.73 square meters GFR/1.73 sq M.predicted among non-blacks MDRD (S/P/Bld) [Vol rate/Area] 86 ml/min/1.73sqm Invalid Interpretation Code AO Chemistry S Comment on above: Interpretive Data: GFR Population mean for , Non- Americans Ages 20-29 = 116 mL/min/1.73 sq.m. Ages 30-39 = 107 mL/min/1.73 sq.m. Ages 40-49 = 99 mL/min/1.73 sq.m. Ages 50-59 = 93 mL/min/1.73 sq.m. Ages 60-69 = 85 mL/min/1.73 sq.m. Ages 70+ = 75 mL/min/1.73 sq.m. Chronic Kidney Disease: Less than 60 mL/min/1.73 square meters End Stage Renal Disease: Less than 15 mL/min/1.73 square meters Globulin 3.8 G/dL Invalid Interpretation Code AO ADM SS Glucose [Mass/Vol] 83 mg/dL Normal 83 - 110 mg/dL AO ADM SS Hematocrit (Bld) [Volume fraction] 38.9 % Normal 34.0 - 46.0 % AO Workflow SS Hemoglobin (Bld) [Mass/Vol] 13.0 G/dL Normal 12.0 - 16.0 G/dL AO Workflow SS Lipase [Catalytic activity/Vol] 16 U/L Normal 16 - 77 U/L AO ADM SS Lymphocytes (Bld) [#/Vol] 2.1 103/mcL Normal 0.9 - 4.3 10^3/mcL AO Workflow SS Lymphocytes/100 WBC (Bld) 28.0 % Normal 20.0 - 40.0 % AO Workflow SS MCH (RBC) [Entitic mass] 28.8 pg Normal 27.0 - 33.0 pg AO Workflow SS MCHC 33.4 G/dL Normal 32.0 - 36.0 G/dL AO Workflow SS MCV (RBC) [Entitic vol] 86.2 fL Normal 80.0 - 99.0 fL AO Workflow SS Monocytes (Bld) [#/Vol] 0.5 103/mcL Normal 0.1 - 1.4 10^3/mcL AO Workflow SS Monocytes/100 WBC (Bld) 6.2 % Normal 2.0 - 13.0 % AO Workflow SS Neutrophils (Bld) [#/Vol] 4.8 103/mcL Normal 2.3 - 8.1 10^3/mcL AO Workflow SS Neutrophils/100 WBC (Bld) 63.8 % Normal 50.0 - 75.0 % AO Workflow SS Platelet mean volume (Bld) [Entitic vol] 8.8 fL Normal 6.6 - 10.5 fL AO Workflow SS Platelets (Bld) [#/Vol] 266 103/mcL Normal 150 - 450 10^3/mcL AO Workflow SS Potassium [Moles/Vol] 4.0 mmol/L Normal 3.5 - 5.1 mmol/L AO ADM SS Protein [Mass/Vol] 7.5 G/dL Normal 6.4 - 8.2 G/dL AO ADM SS RBC (Bld) [#/Vol] 4.51 106/mcL Normal 4.10 - 5.3 0 10^6/mcL AO Workflow SS Sodium [Moles/Vol] 142 mmol/L Normal 136 - 145 mmol/L AO ADM SS Urea nitrogen [Mass/Vol] 14 mg/dL Normal 7 - 18 mg/dL AO ADM SS Urea nitrogen/Creatinine [Mass ratio] 21 ratio Normal 7 - 27 ratio AO ADM SS WBC (Bld) [#/Vol] 7.6 103/mcL Normal 4.5 - 10.8 10^3/mcL AO Workflow SS LABORATORYOrdered By: Marcelle Dallas on 03-20-2024 Cholesterol [Mass/Vol] 164 mg/dL Normal 0 - 200 mg/dL AO ADM SS Comment on above: Interpretive Data: C holesterol Reference Interval: Less than 200 Desirable 200-239 Borderline high risk 240 and above High risk Cholesterol in HDL [Mass/Vol] 61 mg/dL High 40 - 60 mg/dL AO ADM SS Cholesterol in LDL [Mass/Vol] 87 mg/dL Normal 0 - 130 mg/dL AO ADM SS Triglyceride [Mass/Vol] 79 mg/dL Normal 0 - 150 mg/dL AO ADM SS Comment on above: Interpretive Data: T riglyceride Reference Interval: Less than 150 Normal 150-199 Borderline high risk 200-499 High risk 500 or higher Very high risk LIPon 03-20-2024 Lipase Level 16 U/L Normal 16-77 [facility] Comment on above: Performed By: #### C BC, CMP, ADIFF, ANEU, GFR, LIPID, LIP #### [address] [address] LIPIDon 03-20-2024 Cholesterol [Mass/Vol] 164 mg/dL Normal 0-200 [facility] Comment on above: Result Comment: Chol esterol Reference Interval: Less than 200 Desirable 200-239 Borderline high risk 240 and above High risk Performed By: #### C BC, CMP, ADIFF, ANEU, GFR, LIPID, LIP #### [address] [address] Cholesterol in HDL [Mass/Vol] 61 mg/dL High 40-60 [facility] Comment on above: Performed By: #### C BC, CMP, ADIFF, ANEU, GFR, LIPID, LIP #### [address] [address] Cholesterol in LDL [Mass/Vol] 87 mg/dL Normal 0-130 [facility] Comment on above: Performed By: #### C BC, CMP, ADIFF, ANEU, GFR, LIPID, LIP #### [address] [address] Triglyceride [Mass/Vol] 79 mg/dL Normal 0-150 [facility] Comment on above: Result Comment: Trig lyceride Reference Interval: Less than 150 Normal 150-199 Borderline high risk 200-499 High risk 500 or higher Very high risk Performed By: #### C BC, CMP, ADIFF, ANEU, GFR, LIPID, LIP #### [address] [address] Encounters Encounter Date Encounter Type Care Provider Facility Start: 01-03-2025 ambulatory Kailyn Rizvi Facility :[facility] Start: 01-03-2025 End: 01-06-2025 Evaluation and management of inpatient Kailyn L Belkys Facility:[facility] Start: 01-03-2025 ambulatory ANN Rogers y:JANETT Start: 03-20-2024 End: 03-20-2024 ambulatory ANN LEYVA [facility] Start: 03-20-2024 End: 03-20-2024 Patient encounter procedure ANN LEYVA [employer]EL MANAGER-PAPER MACHINE OPERATOR [facility] Procedures Date Procedure Procedure Detail Performing Clinician Appendix absent (finding) PIERO ORLANDO GORDON [employer] [employer] Bladder biopsy sample (specimen) ANN LEYVA [employer] [employer] Tonsillectomy ANN TARIQARNIE Evangelista [employer] Payers Date Payer Category Payer Unknown [id number] 2024 Unknown [id number] 2024 Self-pay [id number] 1950 Unknown [id number] 2.16.8 [id number] Unknown [id number] 2.16.8 [id number] Unknown [id number] 2.16.8 [id number] Unknown [id number] 2.16.8 [id number] Unknown [id number] 2.16.8 [id number] Unknown [id number] 2.16.8 [id number] Unknown [id number] 2.16.8 [id number] Unknown [id number] 2.16.8 [id number] Unknown [id number] 2.16.8 [id number] Social History Date Type Detail Facility Start: 03-18-2024 Tobacco smoking status Never s moked tobacco (finding) [facility] Sexual Orientation Giuseppe velasco [facility] Sex Assigned At Female [facility] Start: 08-27-2018 Sex Female (finding) [facility] Discharge summary note 01-06-2025 Note Date & Type Note Facility 01-06-2025 Note [facility] Medical Records Department [address] [place] [address] Discharge Summary 01/06/25 1124 MR#: [id number] Acct: [id number] Name: SHERON OSBORN Rep #: [id number] : 1950 74 From: Lolly Lin MD PCP: AGATHA DAVIS Status:ADM IN Location: [facility] [id number] Providers Date of Admission: 01/03/25 Date of Discharge: 01/06/25 Primary Care Physician: AGATHA DVAIS Consultations 01/03/25 06:23 Consult: Orthopedics Routine Consulting Provider: Joseph Cao Reason for Consult: Fall, L hip fx EMERGENT Consult: No MD Notified: Yes Date Notified: 01/03/25 Time Notified: 05:34 Method of Notification: ED Physician Initiated Reason For Visit: FALL, L HIP FRACTURE Diagnosis Discharge Diagnosis (1) Closed left hip fracture: Status: Acute Code(s): S72.002A - Fracture of unspecified part of neck of left femur, initial encounter for closed fracture Plan #General debility, left hip pain s/p mechanical fall w/ left femoral neck nondisplaced impacted fracture #GERD Medications at Discharge Home Medications omeprazole 40 mg capsule,delayed release 20 mg PO DAILY 01/03/25 apixaban 5 mg tablet (Eliquis) 2.5 mg (1/2 x 5 mg) PO BID 3 weeks #0 tabs 01/06/25 calcium carbonate 500 mg (2.5 x 200 mg calcium (500 mg)) PO TIDCM #0 tabs 01/06/25 cholecalciferol (vitamin D3) 25 mcg (1,000 unit) tablet 25 mcg PO DAILY #0 tabs 01/06/25 oxycodone 5 mg tablet 5 mg PO Q4H PRN PRN Pain Score 4-10 3 days #20 tabs 01/06/25 sennosides 8.6 mg-docusate sodium 50 mg tablet (Stimulant Laxative Plus) 2 tab PO BID #0 tabs 01/06/25 Hospital Course Operations - (Left hip hemiarthroplasty 01/03/[address] Cao) Summary of Care Provided Minutes Spent on Discharge: 21 Hospital Course: 74-year-old female history of GERD presented [facility] ED 01/03/2025 due to mechanical fall while taking her dog out. She fell and landed on her left hip. Imaging in the ED showed nondisplaced impacted fracture of the left femoral neck. ED discussed with orthopedic surgeon on-call, Dr. Cao, and was recommended medical admission with Ortho consult. Patient underwent left hip hemiarthroplasty 01/03/[address] Cao. Patient did well postoperatively, briefly had a dip in sodium however unclear if this was lab error as the repeat returned to normal. Patient eating and drinking well per her report. Patient been on 2 L as needed of oxygen, she reports even at home she would have problems with shortness of breath on exertion for long period of time but had ignored it. Patient denying any shortness of breath to me and is in no respiratory distress, no productive cough. Still awaiting a bowel movement however reports she feels things are starting to move has no abdominal pain or nausea. On day of discharge no new or acute complaints, denies any changes or concerns in urination. Will need to follow-up with Ortho in 2 weeks - Will need to continue Eliquis 2.5 mg twice daily for 3 weeks postoperatively Physical Exam Narrative General: Alert, oriented, no apparent distress HEENT: Atraumatic, normocephalic Eyes: Anicteric, normal conjunctiva, extraocular movements grossly intact Neck: Supple Respiratory: No overt wheezes or rhonchi, normal respiratory effort Cardiovascular: Regular rate and rhythm GI: Soft, nontender, nondistended Extremities: No edema Musculoskeletal: Moving all extremities Neuro: No overt focal neurological deficits Skin: No rashes appreciated Psych: Cooperative Weight / BMI Weight Weight: 99 kg Body Mass Index (BMI) 34.2 ABG / Lab / Microbiology Data 01/06/25 04:25 01/06/25 04:25 Laboratory: Laboratory Results - last 24 hr 01/06/25 04:25: WBC 15.1 H, RBC 3.50 L, Hgb 10.1 L, Hct 30.8 L, MCV 88.0, MCH 28.9, MCHC 32.8, RDW Std Deviation 44.5 H, RDW Coeff of Dexter 13.8, Plt Count 193, MPV 10.8, Immature Gran % (Auto) 0.700, Neut % (Auto) 78.9 H, Lymph % (Auto) 11.3 L, [place] % (Auto) 7.0, Eos % (Auto) 1.8, Baso % (Auto) 0.3, Absolute Neuts (auto) 12.0 H, Absolute Lymphs (auto) 1.71, Nucleated RBC % 0, Sodium 133, Potassium 4.2, Chloride 98, Carbon Dioxide 23.9, Anion Gap 11, BUN 21 H, Creatinine 0.86, Estim Creat Clear Calc 68.31, Est GFR (MDRD) Non-Af 71, BUN/Creatinine Ratio 24.1 H, Glucose 103 H, Calcium 8.6 D/C Instructions DC O2, CPAP, BIPAP Needs Home O2 Discharge instructions: Yes Type of respiratory needs?: Oxygen Oxygen frequency: Other Other oxygen liters per minute: 2 Other oxygen frequency: prn DC home with Oxygen: No Meaningful Use Info Meaningful Use Meaningful Use Diagnoses (Choose all that apply): None applicable Discharge Plan Admission Admit Date/Time: 01/03/25 05:32 Primary Reason for Your Visit: Fall with left hip fracture Attending Provider: Lolly Lin Nc (more content not included)... [facility] Consultation note 01-03-2025 Note Date & Type Note Facility 01-03-2025 Note [facility] Medical Records Department [address] [place] [address] Consultation 01/03/25 1109 MR#: [id number] Acct: [id number] Name: SHERON OSBORN Rep #: [id number] : 1950 74 From: Joseph Cao DO PCP: AGATHA DAVIS Status:ADM IN Location: [place] [id number] Assessment Plan Assessment/Plan (1) Fracture of femoral neck: QUALIFIERS: Encounter type: initial encounter Fracture type: closed Laterality: left Qualified Code(s): S72.002A - Fracture of unspecified part of neck of left femur, initial encounter for closed fracture PLAN: Plan Impacted displaced left femoral neck fracture Plan for hemiarthroplasty left hip Benefits alternatives of surgery reviewed including risk of bleed infection nerve artery tissue damage need for further surgery continued pain leg with discrepancy dislocation intraoperative fracture. Consent signed placed in the chart Antibiotics on-call to the OR TXA as well. HPI Consult Data Date of Consult: 01/03/25 HPI Narrative HPI Narrative: SHERON OSBORN, is a 74 F who presents after ground-level fall onto her left side immediately had pain inability ambulate she was brought to the emergency room where x-rays taken which demonstrated a displaced femoral neck fracture impacted. Denies any other injury or concern PFSH Medical History (Updated 01/03/25 @ 11:[address] Joseph Cao, DO) Chronic anemia CKD (chronic kidney disease), stage II Hx of gastric ulcer GERD (gastroesophageal reflux disease) Home Medications ???Medication ???Instructions ???Recorded ???Last Taken ???Type omeprazole 40 mg capsule,delayed 20 mg PO DAILY 01/03/25 Unknown Hi story release Allergy/AdvReac Type Severity Reaction Status Date / Time carbamazepine (From Tegretol) Allergy Other Verified 01/03/25 03:45 Family History (Updated 01/03/25 @ 04:[address] Kailyn Rizvi MD) Mother Heart disease Father Prostate cancer Surgical History Hx of bilateral cataract extraction Hx of appendectomy History of bladder surgery Social History (Updated 01/03/25 @ 04:[address] Kailyn Rizvi MD) household members: none Smoking Status: Never smoker alcohol intake: never substance use type: does not use Physical Exam Const alert, oriented x3 and no apparent distress General Appearance: cooperative and comfortable Extremity Extremity Narrative: Left hip no open wounds compartments soft she is able to wiggle her toes palpable pedal pulse intact and station light touch throughout the extremity Lab / Micro Data 01/03/25 04:12 01/03/25 04:12 Labs: Laboratory Results - last 24 hr 01/03/25 04:12: WBC 11.8 H, RBC 3.98 L, Hgb 11.3 L, Hct 34.8 L, MCV 87.4, MCH 28.4, MCHC 32.5, RDW Std Deviation 44.8 H, RDW Coeff of Dexter 13.8, Plt Count 260, MPV 10.2, Immature Gran % (Auto) 0.700, Neut % (Auto) 79.6 H, Lymph % (Auto) 14.9 L, [place] % (Auto) 3.7, Eos % (Auto) 0.8, Baso % (Auto) 0.3, Absolute Neuts (auto) 9.4 H, Absolute Lymphs (auto) 1.77, Nucleated RBC % 0, PT 13.6, INR 1.0, APTT 30.2, Sodium 139, Potassium 4.0, Chloride 103, Carbon Dioxide 25.4, Anion Gap 11, BUN 19, Creatinine 0.65 L, Estim Creat Clear Calc 68.06, Est GFR (MDRD) Non-Af 92, BUN/Creatinine Ratio 29.5 H, Glucose 116 H, Calcium 8.9 01/03/25 04:34: Urine Color Yellow, Urine Clarity Sl. Cloudy, Urine pH 7.0, Ur Specific [place] 1.010, Urine Protein Negative, Urine Glucose (UA) Normal, Urine Ketones Negative, Urine Occult Blood 25 H, Urine Nitrite Negative, Urine Bilirubin Negative, Urine Urobilinogen Normal, Ur Leukocyte Esterase Negative, Urine RBC 0 SEEN, Urine WBC 0-5 SEEN, Ur Squamous Epith Cells 0 SEEN, Urine Bacteria 0 SEEN, Urine Mucus 0 SEEN Imaging Radiology Impression Chest X-Ray 01/03/25 04:50 IMPRESSION: No acute pulmonary disease. Reading Location: [facility] Hip/Pelvis X-Ray 01/03/25 04:50 IMPRESSION: Nondisplaced impacted fracture of the left femoral neck. Moderate bilateral hip arthrosis. Reading Location: [facility] Knee X-Ray 01/03/25 04:50 IMPRESSION: No acute fracture or dislocation. 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 Reading Location: [facility] 01/03/25 1113 Cosigner Signature (if applicable): CC: AGATHA LEYVA Signed [facility] Evaluation + Plan note Note Date & Type Note Facility Evaluation + Plan note Future Appointments Appointment Date:04/10/2024 10:00:00 AM Scheduled Provider:ANN LEYVA APRN-KHALIDA Location:[facility] Appointment Type:PC [facility] Hospital course Narrative Note Date & Type Note Facility Hospital course Narrative No data available for this section [facility] Hospital Discharge instructions Note Date & Type Note Facility Hospital Discharge instructions No data available for this section [facility] Progress note Note Date & Type Note Facility Progress note No data available for this section [facility] Summary Purpose Family History No Family History Records Found Advance Directives No Advanced Directives Records FoundNo Advanced Directives Records Found Additional Source Comments Patient Care team informatio n (unrecognized section and content) Care Team Personnel Name: ANN LEYVA Position: P4 Advanced Tip Cutter Member Role: Primary Care Physician Address: [address], [place] [id number] [place] [address] Telecom: Care Team Related Persons Name: ONE AT THIS TIME, NO INFORMATION SOURCE (unrecogn ized section and content) DATE CREATED AUTHOR 05/12/2024 [facility] DATE CREATED AUTHOR AUTHOR'S ORGANIZ ATION 01/10/2025 [facility] FOR RECORDS PERTAINING TO PATIENTS WHO ARE OR HAVE BEEN ENROLLED IN A CHEMICAL DEPENDENCY/SUBSTANCEABUSE PROGRAM, SOME INFORMATION MAY BE OMITTED. This clinical summary was aggregated from multiple sources. Caution should be exercised in using it in the provision of clinical care. This summary normalizes information from multiple sources, and as a consequence, information in this document may materially change the coding, format and clinical context of patient data. In addition, data may be omitted in some cases. CLINICAL DECISIONS SHOULD BE BASED ON THE PRIMARY CLINICAL RECORDS. [employer] provides no warranty or guarantee of the accuracy or completeness of information in this document.
[2025-01-11 08:14] LABS: Hematocrit 28.0 % (37-47); Hemoglobin 9.3 g/dL (12.0-15.0); Mean Corp Hgb Conc 33.2 g/dL (32-36); Mean Corpuscular Volume 87.2 fL (81-99); Mean Platelet Vol. 9.7 fl (6.2-12.0); Platelet Count 397 K/mm3 (150-450); RBC Distribution Width CV 14.3 % (11.6-14.6); RBC Distribution Width SD 45.1 fl (35.1-43.9); Red Blood Count 3.21 M/mm3 (4.2-5.4); White Blood Count 11.9 K/mm3 (4.4-11.0)
[2025-01-11 08:29] LABS: Anion Gap 9 (5-15); BUN 14 mg/dL (4-19); BUN/Creat Ratio 26.4 RATIO (10-20); Calcium,Total 8.8 mg/dL (7.6-11.0); Carbon Dioxide 24.5 mmol/L (21.0-32.0); Chloride 103 mmol/L (98-108); Glucose 98 mg/dL (70-99); Potassium 4.2 mmol/L (3.3-5.1)
== END ==
LOC: OLS.ACH 05:00
PROVIDERS: PCP Nurse Practitioner Family; Visit Provider Internal Medicine
DX: S72.002D Fracture of unspecified part of neck of left femur, subsequent encounter for closed fracture with routine healing (principal); Z96.642 Presence of left artificial hip joint; Z47.1 Aftercare following joint replacement surgery
CPT/HCPCS: 36415; 80048; 85027